=== PATIENT | female | born 1940 | race Caucasian/White ===

== ENCOUNTER 2018-04-22 06:51 | Day surgery (SDC) | payer MEDICARE, OTHER ==
[~2018-04-22 06:51] MED LIST: Lactated Ringers 1,000 ML IV SCH
[2018-04-22] MEDS ORDERED: Propofol 200 MG/20 ML SDV ONE (08:54)
[2018-04-22] MEDS ORDERED: fentaNYL 100 MCG/2 ML SDV ONE (08:54)
[2018-04-22] MEDS ORDERED: Lidocaine 4% 5 ML Amp ONE (09:24)
[2018-04-22 10:10] VITALS: BP 160/70
--- NOTE | 2018-04-22 13:16 | OR ---
SURGERY DATE: 04/22/2018 REFERRING PROVIDER: Mayuri Cota MD PRE-OPERATIVE DIAGNOSES: 1. Esophagitis. The patient just started on omeprazole 20 mg daily within the last week. 2. Chronic dysphagia over the past year, but worse since September. The patient does take Aleve 2 tablets 2 to 3 times per week. No tobacco use and rare alcohol use. POST-OPERATIVE DIAGNOSES: 1. A 3 cm sliding-type hiatal hernia with a very slight Schatzki's ring at the superior aspect at the Z-line. This does not seem to be causing much of a stricture or narrowing. No dilation needed at this time. 2. Mild diffuse gastritis. Antral biopsy x2 taken. 3. Mild esophagitis with cold biopsy x2 bites taken at the Z-line. 4. Mild bile reflux noted in the stomach body. PROCEDURE: Esophagogastroduodenoscopy with cold biopsy x2 sites (antrum and Z- line). SURGEON: Eugene Munguia M.D. ANESTHESIA: Monitored anesthesia care. DESCRIPTION OF PROCEDURE: Mrs. Harrison is a 77-year-old female, who was brought to the endoscope suite after discussion of risks and benefits (including but not limited to reaction to medication, bleeding, infection, aspiration, perforation). Informed consent was obtained for monitored anesthesia care and esophagogastroduodenoscopy along with possible biopsy and/or dilatation. Pre-procedure exam including oral cavity was unremarkable. IV, oxygen, and monitors were placed. Topical anesthesia consisting of Cetacaine spray was used in the pharynx. Patient was placed in the left lateral position and sedation was administered. A bite block was placed gently and scope lightly lubricated and passed through the bite block and over the tongue. Hypopharynx and vocal cords were visualized and unremarkable. Scope was passed through the cricopharynx and into the esophagus. The scope was then passed through the distal esophagus and the GE junction was visualized and photographed. The GE junction was remarkable for a 3 cm sliding-type hiatal hernia. At the superior aspect, there was a very slight suggestion of Schatzki's ring developing, but not causing any significant narrowing. No dilation was needed at this time. On the way out, we did take cold biopsy x2 bites from the Z-line area. Mild esophagitis was noted. The scope was advanced in the stomach. Gastric lott was suctioned. The patient did have mild bile reflux noted within the stomach body. Vocal cords were visualized and unremarkable. The scope was advanced into the stomach and gastric lott was suctioned. Pylorus was identified and intubated and then the scope was advanced to the third portion of the duodenum. The second and third portions of the duodenum were unremarkable. The duodenal bulb was visualized and unremarkable. The scope was brought back into the stomach. The pylorus and antrum were remarkable for diffuse gastritis with some scattered petechiae. No ulcerations seen. Cold biopsy x2 bites was taken from this area to check for H. pylori and sent for path. The scope was then retroflexed to visualize the angularis, fundus, body, and cardia. These were remarkable for some mild diffuse gastritis. Also scattered bleeding petechiae. Retroflexion also gave a good view of the sliding hiatal hernia. The stomach was desufflated of air and then the scope was slowly withdrawn, and the esophagus was closely visualized during withdrawal all the way into the posterior pharynx. In the upper esophagus there was an area of heterotopic type mucosa. Cold biopsy x2 bites was taken of this area and sent for path. The patient tolerated the procedure well and went to recovery in stable condition. The patient was monitored until at baseline status. Findings and discharge instructions were reviewed and the patient was discharged in good condition. COMPLICATIONS: None. TOTAL TIME: 7 minutes. ESTIMATED BLOOD LOSS: About 1 mL. RECOMMENDATIONS/FOLLOW-UP: Findings were discussed with the patient. They will have her continue on her omeprazole 20 mg daily for the time being. We can consider increasing dose in the future if needed as there is some obvious inflammation going on in the stomach and lower esophagus. I am also going to have her hold her aspirin for 3 days to limit any chance of bleeding after the biopsies were taken. I would like to kindly thank you, Dr. Cota, for this referral. DMB: 04/22/2018 10:59:57 MODL: 04/22/2018 13:04:25 /[id number]
== END 2018-04-22 10:13 | disposition home or self-care (01) ==
LOC: VM.SDS 06:51
PROVIDERS: ATTEND Family Medicine
DX: K20.9 Esophagitis, unspecified (principal); K44.9 Diaphragmatic hernia without obstruction or gangrene; K29.70 Gastritis, unspecified, without bleeding; K21.9 Gastro-esophageal reflux disease without esophagitis; I10 Essential (primary) hypertension; J43.1 Panlobular emphysema; E78.00 Pure hypercholesterolemia, unspecified; R73.9 Hyperglycemia, unspecified; E83.42 Hypomagnesemia; N81.11 Cystocele, midline; M19.90 Unspecified osteoarthritis, unspecified site; Z79.82 Long term (current) use of aspirin; Z79.899 Other long term (current) drug therapy; Z88.0 Allergy status to penicillin; Z88.8 Allergy status to other drugs, medicaments and biological substances; Z91.018 Allergy to other foods
CPT/HCPCS: 00731; 43239; 88305; J2704; J3010; J7120

== ENCOUNTER 2018-09-30 11:06 | Observation (INO) | payer MEDICARE, OTHER ==
[2018-09-30] MEDS ORDERED: Sodium Chloride 0.9% 10 ML Syringe FLUSH PRN (11:46)
[2018-09-30] MEDS ORDERED: Sodium Chloride 0.9% 1,000 ML IV ONE (11:50)
--- NOTE | 2018-09-30 12:11 | EDM.PDOC ---
ED HPI GENERAL MEDICAL PROBLEM - General Chief Complaint: Gastrointestinal Problem Stated Complaint: SHAKY COLD Time Seen by Provider: 09/30/18 11:17 Source of Information: Reports: Patient History Limitations: Reports: No Limitations - History of Present Illness INITIAL COMMENTS - FREE TEXT/NARRATIVE: PLEASE USE ER NOTE FOR ADMISSION HISTORY AND PHYSICAL Patient arrived from the clinic without any report or notice. Patient presented with being cold, nauseated, chills, sore all over. Has history of electrolyte abnormalities. Some complaints of HTN. Reports having been feeling this was for the last several days. No additional complaints. Denies headache, chest pain, SOB, abdominal pain, urinary complaints. Does have nausea , vomiting, diarrhea. Feeling weak and fatigued. Onset: Gradual Duration: Getting Worse Location: Reports: Generalized Associated Symptoms: Reports: Fever/Chills, Nausea/Vomiting Generalized Pain Score (Numeric/FACES): 5 - Related Data Allergies Allergy/AdvReac Type Severity Reaction Status Date / Time acetaminophen Allergy Nausea Verified 09/30/18 13:30 [From Lorcet ] hydrocodone Allergy Nausea Verified 09/30/18 13:30 [From Lorcet ] Penicillins Allergy Rash Verified 09/30/18 13:30 soybean Allergy Edema Verified 09/30/18 13:30 [id number] Allergy Other Uncoded 04/22/18 07:37 Home Meds: Home Meds Albuterol [Ventolin HFA] 2 puff INH Q4H PRN 12/24/14 [History] Fluticasone Propionate [Flonase] 2 spray NASBOTH DAILY PRN 12/24/14 [History] Fluticasone/Salmeterol [Advair 250-50 Diskus] 1 puff INH BID 12/24/14 [History] Gemfibrozil 1 tab PO DAILY 12/24/14 [History] Lisinopril 5 mg PO DAILY 12/24/14 [History] Aspirin [Halfprin] 81 mg PO DAILY 04/19/18 [History] Cholecalciferol (Vitamin D3) [D3 Dots] 2,000 unit PO DAILY 04/19/18 [History] Cranberry Fruit Concentrate [Azo Cranberry] 250 mg PO DAILY 04/19/18 [History] Naproxen Sodium [Aleve] 440 mg PO DAILY PRN 04/19/18 [History] Omeprazole 20 mg PO DAILY 04/19/18 [History] Sulfamethoxazole/Trimethoprim [Sulfamethoxazole-Tmp Ds Tablet] 1 tab PO DAILY PRN 04/19/18 [History] Triamterene/Hydrochlorothiazid [Triamterene-HCTZ 37.5-25 MG] 1 cap PO DAILY [History] tiZANidine HCl [Tizanidine HCl] 2 mg PO TID PRN 04/19/18 [History] Past Medical History HEENT History: Reports: Allergic Rhinitis, Hard of Hearing Other HEENT History: esophagitis Cardiovascular History: Reports: High Cholesterol, Hypertension Respiratory History: Reports: COPD Other Respiratory History: chronic obstructive respiratory disease. lung nodule. panilobular emphysema Genitourinary History: Reports: UTI, Recurrent Other Genitourinary History: midline cystocele Musculoskeletal History: Reports: Osteoarthritis Other Musculoskeletal History: abnormal leg movement. acute bilateral low back pain with bilateral sciatica. disorder of bone. right ankle pain. shoulder pain. DJD. sprain and strain of sacroiliac ligament. herpes zoster Neurological History: Reports: Vertigo Other Endocrine/Metabolic History: hyperglycemia Other Hematologic History: vitamin d deficiency. hypomagnesemia - Past Surgical History HEENT Surgical History: Reports: Adenoidectomy, Tonsillectomy GI Surgical History: Reports: Appendectomy, Cholecystectomy Other GI Surgeries/Procedures: exploratory lap Female Surgical History: Reports: Hysterectomy, Other (See Below) Other Female Surgeries/Procedures: RPR rectocele Musculoskeletal Surgical History: Reports: Carpal Tunnel, Joint Replacement Other Musculoskeletal Surgeries/Procedures:: total ankle replacement (right) Social & Family History - Family History Family Medical History: Noncontributory - Tobacco Use Smoking Status *Q: Never Smoker Second Hand Smoke Exposure: No - Caffeine Use Caffeine Use: Reports: None - Recreational Drug Use Recreational Drug Use: No ED ROS GENERAL - Review of Systems Review Of Systems: See Below Constitutional: Reports: Fever, Chills HEENT: Reports: No Symptoms Respiratory: Reports: No Symptoms Cardiovascular: Reports: No Symptoms Endocrine: Reports: No Symptoms GI/Abdominal: Reports: Diarrhea, Nausea, Vomiting. Denies: Abdominal Pain : Reports: No Symptoms Musculoskeletal: Reports: No Symptoms Skin: Reports: No Symptoms Neurological: Reports: No Symptoms Psychiatric: Reports: No Symptoms Hematologic/Lymphatic: Reports: No Symptoms Immunologic: Reports: No Symptoms ED EXAM, GENERAL - Physical Exam Exam: See Below Exam Limited By: No Limitations General Appearance: Alert, WD/WN, Mild Distress Eye Exam: Bilateral Eye: EOMI, Normal Inspection, PERRL Ears: Normal TMs Nose: Normal Inspection, Normal Mucosa, No Blood Throat/Mouth: Normal Inspection, Normal Lips, Normal Teeth, Normal Gums, Normal Oropharynx, Normal Voice, No Airway Compromise Head: Atraumatic, Normocephalic Neck: Normal Inspection, Supple, Non-Tender, Full Range of Motion Respiratory/Chest: No Respiratory Distress, Lungs Clear, Normal Breath Sounds, No Accessory Muscle Use, Chest Non-Tender Cardiovascular: Normal Peripheral Pulses, Regular Rate, Rhythm, No Edema, No Gallop, No JVD, No Murmur, No Rub Peripheral Pulses: 2+: Posterior Tibial (L), Posterior Tibial (R), Dorsalis Pedis (L), Dorsalis Pedis (R) GI/Abdominal: Normal Bowel Sounds, Soft, Non-Tender, No Mass Extremities: Normal Inspection, Normal Range of Motion, Non-Tender, Normal Capillary Refill, No Pedal Edema Neurological: Alert, Oriented, CN II-XII Intact, Normal Cognition, Normal Gait, Normal Reflexes, No Motor/Sensory Deficits Psychiatric: Normal Affect, Normal Mood Skin Exam: Warm, Dry, Intact, Normal Color, No Rash Lymphatic: No Adenopathy EKG INTERPRETATION EKG Date: 09/30/18 Rhythm: NSR [facility]: Normal P-Wave: Present QRS: Normal ST-T: Normal QT: Normal Course - Vital Signs Last Recorded V/S: Last Vital Signs Temp 36.3 C 09/30/18 11:22 Pulse 75 09/30/18 11:22 Resp 22 H 09/30/18 11:22 BP 190/79 H 09/30/18 11:22 Pulse Ox 100 09/30/18 11:22 - Orders/Labs/Meds Orders: Active Orders 24 hr Category Date Time Status EKG Documentation Completion [RC] STAT Care 09/30/18 11:46 Active CULTURE BLOOD [BC] Stat Lab 09/30/18 12:03 Results CULTURE BLOOD [BC] Stat Lab 09/30/18 12:08 Results Sodium Chloride 0.9% [Saline Flush] Med 09/30/18 11:46 Active 10 ml FLUSH ASDIRECTED PRN Blood Culture x2 Reflex Set [OM.PC] Stat Oth 09/30/18 11:46 Ordered Saline Lock Insert [OM.PC] Routine Oth 09/30/18 11:46 Ordered Medication Orders Aspirin (Halfprin) 81 mg PO DAILY CHARMAINE Fluticasone Propionate (Flonase) gm NASBOTH DAILY PRN PRN Reason: NASAL CONGESTION Gemfibrozil (Lopid) mg PO DAILY CHARMAINE Magnesium Sulfate 4 gm/ Premix 100 mls @ 25 mls/hr IV ONETIME ONE Stop: 09/30/18 17:28 Sodium Chloride (Normal Saline) 1,000 mls @ 100 mls/hr IV ASDIRECTED CHARMAINE Lisinopril (Prinivil) 5 mg PO DAILY CHARMAINE Non-Formulary Medication (Albuterol) 2 puff INH Q4H PRN PRN Reason: shortness of Non-Formulary Medication (Cholecalciferol (Vitamin D3) [D3 Dots]) 2,000 unit PO DAILY CHARMAINE Non-Formulary Medication (Cranberry Fruit Concentrate [Azo Cranberry]) 250 mg PO DAILY CHARMAINE Non-Formulary Medication (Fluticasone/Salmeterol [Advair 250-50 Diskus]) 1 puff INH BID CHARMAINE Non-Formulary Medication (Naproxen Sodium [Aleve]) 440 mg PO DAILY PRN PRN Reason: Pain Non-Formulary Medication (Tizanidine Hcl [Tizanidine Hcl]) 2 mg PO TID PRN PRN Reason: Muscle Spasm Non-Formulary Medication (Triamterene/Hydrochlorothiazid [Triamterene-Hctz 37.5- 25 Mg]) 1 cap PO DAILY [facility] Omeprazole (Omeprazole) 20 mg PO DAILY CHARMAINE Ondansetron HCl (Zofran Odt) 4 mg PO Q6H PRN PRN Reason: nausea, able to take PO Sodium Chloride (Saline Flush) 10 ml FLUSH ASDIRECTED PRN PRN Reason: Keep Vein Open Trimethoprim/Sulfamethoxazole (Septra Ds) 1 tab PO DAILY PRN PRN Reason: after intercourse Labs: Laboratory Tests 09/30/18 09/30/18 09/30/18 Range/Units 11:46 12:03 12:03 WBC 8.6 (4.0-10.0) x10^3/uL RBC 4.21 (4.00-5.50) x10^6/uL Hgb 13.2 D (12.0-16.0) g/dL Hct 37.2 (33.0-47.0) % MCV 88.4 (78.0-93.0) fL MCH 31.4 (26.0-32.0) pg MCHC 35.5 (32.0-36.0) g/dL RDW Coeff of April 11.9 (10.0-15.0) % Plt Count 515 H D (130-400) x10^3/uL Neut % (Auto) 82.7 H (50.0-80.0) % Lymph % (Auto) 7.5 L (25.0-50.0) % [place] % (Auto) 9.1 (2.0-11.0) % Eos % (Auto) 0.2 (0.0-4.0) % Baso % (Auto) 0.5 (0.2-1.2) % PT 11.1 (9.6-11.4) SEC INR 1.1 L (2.0-3.5) Sodium (136-145) mmol/L Potassium (3.5-5.1) mmol/L Chloride (98-107) mmol/L Carbon Dioxide (21-32) mmol/L Anion Gap (10-20) mmol/L BUN (7-18) mg/dL Creatinine (0.55-1.02) mg/dL Est Cr Clr Drug Dosing mL/min Estimated GFR (MDRD) Glucose (74-106) mg/dL Lactic Acid (0.4-2.0) mmol/L Calcium (8.5-10.1) mg/dL Corrected Calcium (8.5-10.1) mg/dL Magnesium (1.8-2.4) mg/dL Total Bilirubin (0.2-1.0) mg/dL AST (15-37) U/L ALT (14-59) U/L Alkaline Phosphatase (46-116) U/L Creatine Kinase (26-192) U/L Troponin I (<=0.056) ng/mL Total Protein (6.4-8.2) g/dL Albumin (3.4-5.0) g/dL Globulin Albumin/Globulin Ratio TSH, Ultra Sensitive (0.358-3.74) uIU/mL Urine Color Yellow (YELLOW) Urine Appearance Clear (CLEAR) Urine pH 7.5 (5.0-8.0) Ur Specific [place] 1.015 Urine Protein Negative (NEGATIVE) mg/dL Urine Glucose (UA) Negative (NEGATIVE) mg/dL Urine Ketones Negative (NEGATIVE) mg/dL Urine Occult Blood Negative (NEGATIVE) Urine Nitrite Negative (NEGATIVE) Urine Bilirubin Negative (NEGATIVE) Urine Urobilinogen 0.2 (0.2) EU/dL Ur Leukocyte Esterase Negative (NEGATIVE) Urine RBC 0-5 (NOT SEEN) /HPF Urine WBC 0-5 (NOT SEEN) /HPF Ur Squamous Epith Cells Not seen (NEGATIVE) /HPF Urine Bacteria Not seen (NEGATIVE) /HPF Urine Mucus Not seen (NEGATIVE) /LPF 09/30/18 09/30/18 Range/Units 12:03 12:03 WBC (4.0-10.0) x10^3/uL RBC (4.00-5.50) x10^6/uL Hgb (12.0-16.0) g/dL Hct (33.0-47.0) % MCV (78.0-93.0) fL MCH (26.0-32.0) pg MCHC (32.0-36.0) g/dL RDW Coeff of April (10.0-15.0) % Plt Count (130-400) x10^3/uL Neut % (Auto) (50.0-80.0) % Lymph % (Auto) (25.0-50.0) % [place] % (Auto) (2.0-11.0) % Eos % (Auto) (0.0-4.0) % Baso % (Auto) (0.2-1.2) % PT (9.6-11.4) SEC INR (2.0-3.5) Sodium 124 L* D (136-145) mmol/L Potassium 3.8 (3.5-5.1) mmol/L Chloride 88 L D (98-107) mmol/L Carbon Dioxide 23 (21-32) mmol/L Anion Gap 16.8 (10-20) mmol/L BUN 10 (7-18) mg/dL Creatinine 0.6 (0.55-1.02) mg/dL Est Cr Clr Drug Dosing 61.86 mL/min Estimated GFR (MDRD) > 60 Glucose 117 H (74-106) mg/dL Lactic Acid 1.7 (0.4-2.0) mmol/L Calcium 10.2 H (8.5-10.1) mg/dL Corrected Calcium 10.52 H (8.5-10.1) mg/dL Magnesium 1.6 L (1.8-2.4) mg/dL Total Bilirubin 0.6 (0.2-1.0) mg/dL AST 15 (15-37) U/L ALT 16 (14-59) U/L Alkaline Phosphatase 156 H (46-116) U/L Creatine Kinase 62 (26-192) U/L Troponin I < 0.017 (<=0.056) ng/mL Total Protein 8.1 (6.4-8.2) g/dL Albumin 3.6 (3.4-5.0) g/dL Globulin 4.5 Albumin/Globulin Ratio 0.80 TSH, Ultra Sensitive 0.418 (0.358-3.74) uIU/mL Urine Color (YELLOW) Urine Appearance (CLEAR) Urine pH (5.0-8.0) Ur Specific [place] Urine Protein (NEGATIVE) mg/dL Urine Glucose (UA) (NEGATIVE) mg/dL Urine Ketones (NEGATIVE) mg/dL Urine Occult Blood (NEGATIVE) Urine Nitrite (NEGATIVE) Urine Bilirubin (NEGATIVE) Urine Urobilinogen (0.2) EU/dL Ur Leukocyte Esterase (NEGATIVE) Urine RBC (NOT SEEN) /HPF Urine WBC (NOT SEEN) /HPF Ur Squamous Epith Cells (NEGATIVE) /HPF Urine Bacteria (NEGATIVE) /HPF Urine Mucus (NEGATIVE) /LPF Meds: Medications Generic Name Dose Route Start Last Admin Trade Name Freq PRN Reason Stop Dose Admin Aspirin 81 mg 10/01/18 08:00 Halfprin PO DAILY CHARMAINE Fluticasone Propionate gm 09/30/18 14:06 Flonase NASBOTH DAILY PRN NASAL CONGESTION Gemfibrozil mg 10/01/18 08:00 Lopid PO DAILY CHARMAINE Magnesium Sulfate 4 gm/ Premix 100 mls @ 25 mls/hr 09/30/18 13:29 IV 09/30/18 17:28 ONETIME ONE Sodium Chloride 1,000 mls @ 100 mls/hr 09/30/18 13:30 Normal Saline IV ASDIRECTED CHARMAINE Lisinopril 5 mg 09/30/18 14:15 Prinivil PO DAILY CHARMAINE Non-Formulary Medication 2 puff 09/30/18 14:06 Albuterol INH Q4H PRN shortness of Non-Formulary Medication 2,000 unit 10/01/18 08:00 Cholecalciferol (Vitamin D3) [D3 Dots] PO DAILY CHARMAINE Non-Formulary Medication 250 mg 10/01/18 08:00 Cranberry Fruit Concentrate [Azo Cranberry] PO DAILY CHARMAINE Non-Formulary Medication 1 puff 09/30/18 20:00 Fluticasone/Salmeterol [Advair 250-50 Diskus] INH BID CHARMAINE Non-Formulary Medication 440 mg 09/30/18 14:06 Naproxen Sodium [Aleve] PO DAILY PRN Pain Non-Formulary Medication 2 mg 09/30/18 14:06 Tizanidine Hcl [Tizanidine Hcl] PO TID PRN Muscle Spasm Non-Formulary Medication 1 cap 10/01/18 08:00 Triamterene/Hydrochlorothiazid [Triamterene-Hctz 37.5-25 Mg] PO DAILY CHARMAINE Omeprazole 20 mg 10/01/18 08:00 Omeprazole PO DAILY CHARMAINE Ondansetron HCl 4 mg 09/30/18 14:03 Zofran Odt PO Q6H PRN nausea, able to take PO Sodium Chloride 10 ml 09/30/18 11:46 Saline Flush FLUSH ASDIRECTED PRN Keep Vein Open Trimethoprim/Sulfamethoxazole 1 tab 09/30/18 14:06 Septra Ds PO DAILY PRN after intercourse Discontinued Medications Generic Name Dose Route Start Last Admin Trade Name Freq PRN Reason Stop Dose Admin Sodium Chloride 1,000 mls @ 999 mls/hr 09/30/18 11:50 09/30/18 12:09 Normal Saline IV 09/30/18 12:50 999 mls/hr ONETIME ONE Administration Ondansetron HCl 4 mg 09/30/18 12:19 09/30/18 12:24 Zofran IVPUSH 09/30/18 12:20 4 mg ONETIME ONE Administration Departure - Departure Time of Disposition: 13:48 Disposition: Refer to Observation Condition: Good Clinical Impression: Hyponatremia, Hypomagnesemia - Discharge Information *PRESCRIPTION DRUG MONITORING PROGRAM REVIEWED*: Not Applicable *COPY OF PRESCRIPTION DRUG MONITORING REPORT IN PATIENT ADELAIDA: Not Applicable - Problem List & Annotations (1) Hypomagnesemia SNOMED Code(s): 109342773 Code(s): E83.42 - HYPOMAGNESEMIA Status: Acute Priority: Medium Current Visit: Yes (2) Hyponatremia SNOMED Code(s): 93622137 Code(s): E87.1 - HYPO-OSMOLALITY AND HYPONATREMIA Status: Acute Priority : High Current Visit: Yes (3) Gastroenteritis SNOMED Code(s): 05545755 Code(s): K52.9 - NONINFECTIVE GASTROENTERITIS AND COLITIS, UNSPECIFIED Status: Acute Priority: High Current Visit: No - Problem List Review Problem List Initiated/Reviewed/Updated: Yes - My Orders Last 24 Hours: My Active Orders 09/30/18 11:46 EKG Documentation Completion [RC] STAT Sodium Chloride 0.9% [Saline Flush] 10 ml FLUSH ASDIRECTED PRN Blood Culture x2 Reflex Set [OM.PC] Stat Saline Lock Insert [OM.PC] Routine 09/30/18 12:03 CULTURE BLOOD [BC] Stat 09/30/18 12:08 CULTURE BLOOD [BC] Stat - Assessment/Plan Last 24 Hours: My Active Orders 09/30/18 11:46 EKG Documentation Completion [RC] STAT Sodium Chloride 0.9% [Saline Flush] 10 ml FLUSH ASDIRECTED PRN Blood Culture x2 Reflex Set [OM.PC] Stat Saline Lock Insert [OM.PC] Routine 09/30/18 12:03 CULTURE BLOOD [BC] Stat 09/30/18 12:08 CULTURE BLOOD [BC] Stat Assessment:: Hypokalemia hypomagnesemia gastroenteritis Plan: Plan 1. hypomagnesemia - magnesium repletion 2. hyponatremia - 0.9% saline infusion 3. gastroenteritis - zofran as needed for nausea, iv hydration Labs in am to determine NA and MG levels. Anticipate DC sometime tomorrow.
[2018-09-30] MEDS ORDERED: Ondansetron 4 MG/2 ML SDV IVPUSH ONE (12:19)
[2018-09-30 12:50] LABS: CHLORIDE,CL 88 mmol/L (98-107)
[2018-09-30 12:54] LABS: ANION GAP 16.8 mmol/L (10-20); SODIUM,NA 124 mmol/L (136-145)
[2018-09-30] MEDS ORDERED: Magnesium Sulfate/Water 4 GM in Premix Bag 1 BAG IV ONE (13:29)
[2018-09-30] MEDS ORDERED: Ondansetron 4 MG Tab.DIS PO PRN (14:03)
[2018-09-30] MEDS ORDERED: Fluticasone Propionate Nasal Spray 16 GM Bottle NASBOTH PRN (14:06)
[2018-09-30] MEDS ORDERED: tiZANidine 4 MG Tab PO PRN (14:06)
[2018-09-30] MEDS ORDERED: Sulfamethoxazole/Trimethoprim 800-160 MG Tab PO PRN (14:06)
[2018-09-30] MEDS: Sodium Chloride 0.9% 1,000 ML IV SCH (14:19)
[2018-09-30] MEDS: LISINOPRIL 5 MG PO SCH (15:33)
[2018-09-30] MEDS: SALMETEROL INH SCH (21:02)
[2018-09-30] MEDS: FLUTICASONE INH SCH (21:02)
[2018-10-01] MEDS: Sodium Chloride 0.9% 1,000 ML IV SCH (01:09)
[2018-10-01 06:49] VITALS: BP 141/78
[2018-10-01] MEDS ORDERED: Omeprazole 20 MG Cap.CR PO SCH (07:00)
[2018-10-01 07:12] LABS: ANION GAP 13.1 mmol/L (10-20); CHLORIDE,CL 100 mmol/L (98-107); SODIUM,NA 135 mmol/L (136-145)
[2018-10-01] MEDS ORDERED: TRIAMTERENE PO SCH (08:00)
[2018-10-01] MEDS ORDERED: Aspirin 81 MG Tab.EC PO SCH (08:00)
[2018-10-01] MEDS ORDERED: Cholecalciferol (Vitamin D3) 1,000 Unit Tab PO SCH (08:00)
[2018-10-01] MEDS ORDERED: CRANBERRY FRUIT 500 MG PO SCH (08:00)
[2018-10-01] MEDS ORDERED: GEMFIBROZIL 600 MG PO SCH (08:00)
[2018-10-01] MEDS ORDERED: HYDROCHLOROTHIAZID PO SCH (08:00)
[2018-10-01] MEDS: LISINOPRIL 5 MG PO SCH (08:01)
--- NOTE | 2018-10-01 08:53 | PCM.DCSUM1 ---
Discharge Summary - Hospital Course HPI Initial Comments: Patient presented with being cold, nauseated, chills, sore all over. Has history of electrolyte abnormalities. Some complaints of HTN. Reports having been feeling this was for the last several days. No additional complaints. Denies headache, chest pain, SOB, abdominal pain, urinary complaints. Does have nausea, vomiting, diarrhea. Feeling weak and fatigued. Influenza negative. Patient found to be hyponatremic and low mag. Diagnosis: Stroke: No Modified Cabell Scale: No Symptoms at All Modified Cabell Scale Score: 0 - Discharge Data Discharge Date: 10/01/18 Discharge Disposition: Home, Self-Care 01 Condition: Good - Discharge Diagnosis/Problem(s) (1) Hypomagnesemia SNOMED Code(s): 428056030 ICD Code: E83.42 - HYPOMAGNESEMIA Status: Resolved Priority: Medium Current Visit: Yes (2) Hyponatremia SNOMED Code(s): 93507662 ICD Code: E87.1 - HYPO-OSMOLALITY AND HYPONATREMIA Status: Resolved Priority: High Current Visit: Yes (3) Dehydration SNOMED Code(s): 75212276 ICD Code: E86.0 - DEHYDRATION Status: Resolved Priority: High Current Visit: Yes (4) Gastroenteritis SNOMED Code(s): 23456219 ICD Code: K52.9 - NONINFECTIVE GASTROENTERITIS AND COLITIS, UNSPECIFIED Status: Resolved Priority: High Current Visit: No - Patient Summary/Data Operative Procedure(s) Performed: None Consults: None Labs Pending at D/C: None Recommended Follow-up Testing/Procedures: Labs prior to clinic appointment next week Planned Operative Procedure(s) after DC: None Hospital Course: Patient remained hemodynamically stable and afebrile. Electrolytes were replaced. Patient continues to have a dry cough. No issues with BM's or urination. Patient ambulating independently. Tolerated diet ok. - Patient Instructions Diet: Heart Healthy Diet Activity: As Tolerated, Rest and Relax Today Driving: Do Not Drive Showering/Bathing: May Shower Notify Provider of: Fever, Nausea and/or Vomiting - Discharge Plan *PRESCRIPTION DRUG MONITORING PROGRAM REVIEWED*: Not Applicable *COPY OF PRESCRIPTION DRUG MONITORING REPORT IN PATIENT ADELAIDA: Not Applicable Prescriptions/Med Rec: Benzonatate [Tessalon Perle] 100 mg PO TID PRN #30 capsule PRN Reason: Cough Home Medications: Home Meds Albuterol [Ventolin HFA] 2 puff INH Q4H PRN 12/24/14 [History] Fluticasone Propionate [Flonase] 2 spray NASBOTH DAILY PRN 12/24/14 [History] Fluticasone/Salmeterol [Advair 250-50 Diskus] 1 puff INH BID 12/24/14 [History] Gemfibrozil 1 tab PO DAILY 12/24/14 [History] Lisinopril 5 mg PO DAILY 12/24/14 [History] Aspirin [Halfprin] 81 mg PO DAILY 04/19/18 [History] Cholecalciferol (Vitamin D3) [D3 Dots] 2,000 unit PO DAILY 04/19/18 [History] Cranberry Fruit Concentrate [Azo Cranberry] 250 mg PO DAILY 04/19/18 [History] Naproxen Sodium [Aleve] 440 mg PO DAILY PRN 04/19/18 [History] Omeprazole 20 mg PO DAILY 04/19/18 [History] Sulfamethoxazole/Trimethoprim [Sulfamethoxazole-Tmp Ds Tablet] 1 tab PO DAILY PRN 04/19/18 [History] Triamterene/Hydrochlorothiazid [Triamterene-HCTZ 37.5-25 MG] 1 cap PO DAILY [History] tiZANidine HCl [Tizanidine HCl] 2 mg PO TID PRN 04/19/18 [History] Benzonatate [Tessalon Perle] 100 mg PO TID PRN #30 capsule 10/01/18 [Rx] Oxygen Therapy Mode: Room Air Referrals: Mayuri Cota MD [Primary Care Provider] - - Discharge Summary/Plan Comment DC Time >30 min.: No Discharge Summary/Plan Comment: Patient will be discharged home today. No changes with any home medications. Stop Doxycycline as patient does not want to take it anymore. Start on Tessalon Pearles for cough. Follow up with PCP next week in clinic. - General Info Date of Service: 10/01/18 Admission Dx/Problem (Free Text: Hyponatremia Hypomagnesemia Dehydration Subjective Update: Patient complains of a dry non-productive cough, otherwise, no concerns. Patient states she is feeling good this morning. No chest pain or SOB. No GI problems. No issues with BM's or urination. Tolerating diet ok. Functional Status: Reports: Pain Controlled, Tolerating Diet, Ambulating, Urinating Numeric/FACES Score: 0 - Review of Systems General: Denies: Fever, Chills Pulmonary: Reports: Cough. Denies: Shortness of Breath, Sputum Cardiovascular: Denies: Chest Pain, Palpitations Gastrointestinal: Denies: Abdominal Pain, Nausea, Vomiting Skin: Reports: No Symptoms Neurological: Reports: No Symptoms - Patient Data Vitals - Most Recent: Last Vital Signs Temp 36.7 C 10/01/18 06:00 Pulse 70 10/01/18 06:00 Resp 20 10/01/18 06:00 BP 141/78 H 10/01/18 08:01 Pulse Ox 98 10/01/18 06:00 Weight - Most Recent: 61.235 kg I&O - Last 24 hours: Intake & Output 09/30/18 10/01/18 10/01/18 22:59 06:59 14:59 Intake Total 610 2769 Output Total 1100 2000 Balance -490 769 Lab Results - Last 24 hrs: Laboratory Results - last 24 hr 09/30/18 09/30/18 09/30/18 Range/Units 11:46 12:03 12:03 WBC 8.6 (4.0-10.0) x10^3/uL RBC 4.21 (4.00-5.50) x10^6/uL Hgb 13.2 D (12.0-16.0) g/dL Hct 37.2 (33.0-47.0) % MCV 88.4 (78.0-93.0) fL MCH 31.4 (26.0-32.0) pg MCHC 35.5 (32.0-36.0) g/dL RDW Coeff of April 11.9 (10.0-15.0) % Plt Count 515 H D (130-400) x10^3/uL Neut % (Auto) 82.7 H (50.0-80.0) % Lymph % (Auto) 7.5 L (25.0-50.0) % [place] % (Auto) 9.1 (2.0-11.0) % Eos % (Auto) 0.2 (0.0-4.0) % Baso % (Auto) 0.5 (0.2-1.2) % PT 11.1 (9.6-11.4) SEC INR 1.1 L (2.0-3.5) Sodium (136-145) mmol/L Potassium (3.5-5.1) mmol/L Chloride (98-107) mmol/L Carbon Dioxide (21-32) mmol/L Anion Gap (10-20) mmol/L BUN (7-18) mg/dL Creatinine (0.55-1.02) mg/dL Est Cr Clr Drug Dosing mL/min Estimated GFR (MDRD) Glucose (74-106) mg/dL Lactic Acid (0.4-2.0) mmol/L Calcium (8.5-10.1) mg/dL Corrected Calcium (8.5-10.1) mg/dL Magnesium (1.8-2.4) mg/dL Total Bilirubin (0.2-1.0) mg/dL AST (15-37) U/L ALT (14-59) U/L Alkaline Phosphatase (46-116) U/L Creatine Kinase (26-192) U/L Troponin I (<=0.056) ng/mL Total Protein (6.4-8.2) g/dL Albumin (3.4-5.0) g/dL Globulin Albumin/Globulin Ratio TSH, Ultra Sensitive (0.358-3.74) uIU/mL Urine Color Yellow (YELLOW) Urine Appearance Clear (CLEAR) Urine pH 7.5 (5.0-8.0) Ur Specific [place] 1.015 Urine Protein Negative (NEGATIVE) mg/dL Urine Glucose (UA) Negative (NEGATIVE) mg/dL Urine Ketones Negative (NEGATIVE) mg/dL Urine Occult Blood Negative (NEGATIVE) Urine Nitrite Negative (NEGATIVE) Urine Bilirubin Negative (NEGATIVE) Urine Urobilinogen 0.2 (0.2) EU/dL Ur Leukocyte Esterase Negative (NEGATIVE) Urine RBC 0-5 (NOT SEEN) /HPF Urine WBC 0-5 (NOT SEEN) /HPF Ur Squamous Epith Cells Not seen (NEGATIVE) /HPF Urine Bacteria Not seen (NEGATIVE) /HPF Urine Mucus Not seen (NEGATIVE) /LPF 09/30/18 09/30/18 10/01/18 Range/Units 12:03 12:03 06:35 WBC (4.0-10.0) x10^3/uL RBC (4.00-5.50) x10^6/uL Hgb (12.0-16.0) g/dL Hct (33.0-47.0) % MCV (78.0-93.0) fL MCH (26.0-32.0) pg MCHC (32.0-36.0) g/dL RDW Coeff of April (10.0-15.0) % Plt Count (130-400) x10^3/uL Neut % (Auto) (50.0-80.0) % Lymph % (Auto) (25.0-50.0) % [place] % (Auto) (2.0-11.0) % Eos % (Auto) (0.0-4.0) % Baso % (Auto) (0.2-1.2) % PT (9.6-11.4) SEC INR (2.0-3.5) Sodium 124 L* D 135 L D (136-145) mmol/L Potassium 3.8 4.1 (3.5-5.1) mmol/L Chloride 88 L D 100 D (98-107) mmol/L Carbon Dioxide 23 26 (21-32) mmol/L Anion Gap 16.8 13.1 (10-20) mmol/L BUN 10 7 (7-18) mg/dL Creatinine 0.6 0.5 L (0.55-1.02) mg/dL Est Cr Clr Drug Dosing 61.86 74.23 mL/min Estimated GFR (MDRD) > 60 > 60 Glucose 117 H 85 (74-106) mg/dL Lactic Acid 1.7 (0.4-2.0) mmol/L Calcium 10.2 H 9.2 (8.5-10.1) mg/dL Corrected Calcium 10.52 H (8.5-10.1) mg/dL Magnesium 1.6 L 2.1 (1.8-2.4) mg/dL Total Bilirubin 0.6 (0.2-1.0) mg/dL AST 15 (15-37) U/L ALT 16 (14-59) U/L Alkaline Phosphatase 156 H (46-116) U/L Creatine Kinase 62 (26-192) U/L Troponin I < 0.017 (<=0.056) ng/mL Total Protein 8.1 (6.4-8.2) g/dL Albumin 3.6 (3.4-5.0) g/dL Globulin 4.5 Albumin/Globulin Ratio 0.80 TSH, Ultra Sensitive 0.418 (0.358-3.74) uIU/mL Urine Color (YELLOW) Urine Appearance (CLEAR) Urine pH (5.0-8.0) Ur Specific [place] Urine Protein (NEGATIVE) mg/dL Urine Glucose (UA) (NEGATIVE) mg/dL Urine Ketones (NEGATIVE) mg/dL Urine Occult Blood (NEGATIVE) Urine Nitrite (NEGATIVE) Urine Bilirubin (NEGATIVE) Urine Urobilinogen (0.2) EU/dL Ur Leukocyte Esterase (NEGATIVE) Urine RBC (NOT SEEN) /HPF Urine WBC (NOT SEEN) /HPF Ur Squamous Epith Cells (NEGATIVE) /HPF Urine Bacteria (NEGATIVE) /HPF Urine Mucus (NEGATIVE) /LPF JEFERSON Results - Last 24 hrs: Microbiology 09/30/18 12:00 Influenza Type A Antigen Screen - Final Nasal Aspirate, Unspecified NEGATIVE INFLUENZA A VIRUS AG Influenza Type B Antigen Screen - Final NEGATIVE INFLUENZA B VIRUS AG 09/30/18 12:08 Anaerobic Blood Culture - Final Blood - Venous - Lab Draw 09/30/18 12:03 Anaerobic Blood Culture - Final Blood - Venous Med Orders - Current: Current Medications Aspirin (Halfprin) 81 mg PO DAILY [facility] Last Admin: 10/01/18 07:59 Dose: 81 mg Cholecalciferol (Vitamin D3) 2,000 units PO DAILY [facility] Last Admin: 10/01/18 08:04 Dose: 2,000 units Fluticasone Propionate (Flonase) 0 gm NASBOTH DAILY PRN PRN Reason: NASAL CONGESTION Last Admin: 09/30/18 17:54 Dose: 2 spray Gemfibrozil (Lopid) 600 mg PO DAILY [facility] Last Admin: 10/01/18 08:00 Dose: 600 mg Sodium Chloride (Normal Saline) 1,000 mls @ 100 mls/hr IV ASDIRECTED [facility] Last Admin: 10/01/18 01:09 Dose: 100 mls/hr Lisinopril (Prinivil) 5 mg PO DAILY [facility] Last Admin: 10/01/18 08:01 Dose: 5 mg Naproxen (Naproxen Sodium) 440 mg PO DAILY PRN PRN Reason: Pain Albuterol Inhaler ( (Own Supply)) 0 puff INH Q4H PRN PRN Reason: shortness of breath Cranberry Fruit (Concentrate 500mg) 0 mg PO DAILY [facility] Last Admin: 10/01/18 08:00 Dose: 500 mg Fluticasone/Salmeterol [Advair 250-50 Diskus] 1 puff INH BID [facility] Last Admin: 09/30/18 21:02 Dose: 1 puff Triamterene/Hydrochlorothiazid 37.5-25mg (Own Supply) 1 cap PO DAILY [facility] Last Admin: 10/01/18 08:01 Dose: 1 cap Omeprazole (Omeprazole) 20 mg PO DAILY@0700 [facility] Last Admin: 10/01/18 06:17 Dose: 20 mg Ondansetron HCl (Zofran Odt) 4 mg PO Q6H PRN PRN Reason: nausea, able to take PO Sodium Chloride (Saline Flush) 10 ml FLUSH ASDIRECTED PRN PRN Reason: Keep Vein Open Tizanidine HCl (Zanaflex) 2 mg PO TID PRN PRN Reason: Muscle Spasm Trimethoprim/Sulfamethoxazole (Septra Ds) 1 tab PO DAILY PRN PRN Reason: after intercourse Discontinued Medications Sodium Chloride (Normal Saline) 1,000 mls @ 999 mls/hr IV ONETIME ONE Stop: 09/30/18 12:50 Last Admin: 09/30/18 12:09 Dose: 999 mls/hr Magnesium Sulfate 4 gm/ Premix 100 mls @ 25 mls/hr IV ONETIME ONE Stop: 09/30/18 17:28 Last Admin: 09/30/18 14:18 Dose: 25 mls/hr Ondansetron HCl (Zofran) 4 mg IVPUSH ONETIME ONE Stop: 09/30/18 12:20 Last Admin: 09/30/18 12:24 Dose: 4 mg - Exam Quality Assessment: Denies: DVT Prophylaxis, Skin Breakdown General: Reports: Alert, Oriented, Cooperative, No Acute Distress Lungs: Reports: Clear to Auscultation, Normal Respiratory Effort Cardiovascular: Reports: Regular Rate, Regular Rhythm GI/Abdominal Exam: Normal Bowel Sounds, Soft, Non-Tender Skin: Reports: Warm, Dry, Intact Neurological: Reports: No New Focal Deficit *Q Meaningful Use (DIS) - VTE *Q VTE Criteria *Q: No risk for falls or VTE at time of this discharge
[2018-10-01] MEDS: FLUTICASONE INH SCH (09:13)
[2018-10-01] MEDS: SALMETEROL INH SCH (09:13)
== END 2018-10-01 10:50 | disposition home or self-care (01) ==
LOC: VM.ED 11:06 → VM.MS 13:28
PROVIDERS: ADMIT Nurse Practitioner Family; ATTEND Nurse Practitioner Family
DX: E87.1 Hypo-osmolality and hyponatremia (principal); E83.42 Hypomagnesemia; E86.0 Dehydration; K52.9 Noninfective gastroenteritis and colitis, unspecified; I10 Essential (primary) hypertension; J44.9 Chronic obstructive pulmonary disease, unspecified; E78.00 Pure hypercholesterolemia, unspecified; Z79.82 Long term (current) use of aspirin; Z79.899 Other long term (current) drug therapy
CPT/HCPCS: 36415; 80048; 80053; 81001; 82550; 83605; 83735; 84443; 84484; 85025; 85610; 87040; 87804; 93005; 96361; 96374; 96375; 99285; A9270; G0378; J2405; J3475; J7030

== ENCOUNTER 2021-03-03 06:50 | Observation (INO) | payer MEDICARE, OTHER ==
[2021-03-03] MEDS ORDERED: Ondansetron 4 MG/2 ML SDV IVPUSH ONE (07:11)
[2021-03-03] MEDS ORDERED: Sodium Chloride 0.9% 1,000 ML IV ONE (07:11)
--- NOTE | 2021-03-03 07:36 | EDM.PDOC ---
ED HPI GENERAL MEDICAL PROBLEM - General Chief Complaint: Gastrointestinal Problem Stated Complaint: N/V, coughing, bronchitis Time Seen by Provider: 03/03/21 07:15 Source of Information: Reports: Patient History Limitations: Reports: No Limitations - History of Present Illness INITIAL COMMENTS - FREE TEXT/NARRATIVE: Patient States that she starting having coughing earlier this week about 4 days ago. Was seen, diagnosed with bronchitis and started on a zpak. She thinks maybe the cough is slightly improved. Has been feeling hot and cold. now in the last 1-2 days has developed vomiting and abdominal discomfort from the vomiting. Stools have been a bit looser, but no black or blood. States she is unable to keep anything down and is feeling weak. No covid concerns Onset Date: 02/26/21 Duration: Getting Worse Location: Reports: Chest, Abdomen Improves with: Reports: None Worsens with: Reports: Eating Associated Symptoms: Reports: Cough, Fever/Chills, Loss of Appetite, Malaise, Nausea/Vomiting Upper abdomen, ribs Pain Score (Numeric/FACES): 4 - Related Data Allergies Allergy/AdvReac Type Severity Reaction Status Date / Time acetaminophen Allergy Nausea Verified 03/03/21 07:22 [From Lorcet 10/650] hydrocodone Allergy Nausea Verified 03/03/21 07:22 [From Lorcet 10/] Penicillins Allergy Rash Verified 03/03/21 07:22 soybean Allergy Edema Verified 03/03/21 07:22 [id number] Allergy Other Uncoded 03/03/21 07:22 Home Meds: Home Meds Albuterol [Ventolin HFA] 2 puff INH Q4H PRN 12/24/14 [History] Fluticasone Propion/Salmeterol [Advair 250-50 Diskus] 1 puff INH BID 12/24/14 [History] Fluticasone Propionate [Flonase] 2 spray NASBOTH DAILY PRN 12/24/14 [History] Gemfibrozil 1 tab PO DAILY 12/24/14 [History] Aspirin [Halfprin] 81 mg PO DAILY 04/19/18 [History] Cholecalciferol (Vitamin D3) [D3 Dots] 2,000 unit PO DAILY 04/19/18 [History] Cranberry Fruit Concentrate [Azo Cranberry] 250 mg PO DAILY 04/19/18 [History] Naproxen Sodium [Aleve] 440 mg PO DAILY PRN 04/19/18 [History] Omeprazole 20 mg PO DAILY 04/19/18 [History] Sulfamethoxazole/Trimethoprim [Sulfamethoxazole-Tmp Ds Tablet] 1 tab PO DAILY PRN 04/19/18 [History] Triamterene/Hydrochlorothiazid [Triamterene-HCTZ 37.5-25 MG] 1 cap PO DAILY 04/19/18 [History] Azithromycin 250 mg PO DAILY 03/03/21 [History] Losartan [Cozaar] 50 mg PO DAILY 03/03/21 [History] carvediloL [Carvedilol] 25 mg PO BID 03/03/21 [History] Past Medical History HEENT History: Reports: Allergic Rhinitis, Hard of Hearing Other HEENT History: esophagitis Cardiovascular History: Reports: High Cholesterol, Hypertension Respiratory History: Reports: COPD Other Respiratory History: chronic obstructive respiratory disease. lung nodule. panilobular emphysema Genitourinary History: Reports: UTI, Recurrent Other Genitourinary History: midline cystocele Musculoskeletal History: Reports: Osteoarthritis Other Musculoskeletal History: abnormal leg movement. acute bilateral low back pain with bilateral sciatica. disorder of bone. right ankle pain. shoulder pain. DJD. sprain and strain of sacroiliac ligament. herpes zoster Neurological History: Reports: Vertigo Other Endocrine/Metabolic History: hyperglycemia Other Hematologic History: vitamin d deficiency. hypomagnesemia - Past Surgical History HEENT Surgical History: Reports: Adenoidectomy, Tonsillectomy GI Surgical History: Reports: Appendectomy, Cholecystectomy Other GI Surgeries/Procedures: exploratory lap Female Surgical History: Reports: Hysterectomy, Other (See Below) Other Female Surgeries/Procedures: RPR rectocele Musculoskeletal Surgical History: Reports: Carpal Tunnel, Joint Replacement Other Musculoskeletal Surgeries/Procedures:: total ankle replacement (right) Social & Family History - Family History Family Medical History: No Pertinent Family History - Tobacco Use Tobacco Use Comment: 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 - Caffeine Use Caffeine Use: Reports: None ED ROS GENERAL - Review of Systems Review Of Systems: See Below Constitutional: Reports: Fever, Chills, Malaise, Weakness, Fatigue, Decreased Appetite. Denies: Night Sweats, Diaphoresis HEENT: Reports: No Symptoms. Denies: Ear Pain, Rhinitis, Throat Swelling Respiratory: Reports: Shortness of Breath, Cough. Denies: Wheezing, Pleuritic Chest Pain, Sputum, Hemoptysis Cardiovascular: Reports: Lightheadedness. Denies: Chest Pain, Dyspnea on Exertion, Edema Endocrine: Reports: No Symptoms GI/Abdominal: Reports: Abdominal Pain, Anorexia, Decreased Appetite, Nausea, Vomiting : Reports: No Symptoms. Denies: Frequency, Hematuria, Urgency Musculoskeletal: Reports: No Symptoms Skin: Reports: No Symptoms Neurological: Reports: No Symptoms. Denies: Confusion, Headache, Paresthesia Psychiatric: Reports: No Symptoms Hematologic/Lymphatic: Reports: No Symptoms ED EXAM, GI/ABD - Physical Exam Exam: See Below Exam Limited By: No Limitations General Appearance: Alert, Mild Distress, Active Emesis Eyes: Bilateral: Normal Appearance, EOMI (Perrla) Ears: Normal External Exam Nose: Normal Inspection, Normal Mucosa, No Blood Throat/Mouth: Normal Inspection, Normal Teeth, Normal Oropharynx, Normal Voice Head: Atraumatic, Normocephalic Neck: Normal Inspection Respiratory/Chest: Lungs Clear, Normal Breath Sounds, Decreased Breath Sounds (bases) Cardiovascular: Normal Peripheral Pulses, Regular Rate, Rhythm, No Edema, No Murmur GI/Abdominal Exam: Normal Bowel Sounds, Tender (mild upper abdomen). No: Guarding, Rigid, Rebound Rectal (Female) Exam: Deferred Back Exam: Normal Inspection, Full Range of Motion. No: CVA Tenderness (L), CVA Tenderness (R) Extremities: Normal Inspection, Normal Range of Motion, Non-Tender, No Pedal Edema Neurological: Alert, Oriented, Normal Cognition, No Motor/Sensory Deficits Psychiatric: Normal Affect Skin Exam: Warm #1 Interpretation EKG Date: 03/03/21 Time: 07:30 Rhythm: NSR Elmer: Normal P-Wave: Present QRS: Normal ST-T: Normal QT: Normal Course - Vital Signs Last Recorded V/S: Last Vital Signs Temp 36.1 C 03/03/21 06:50 Pulse 63 03/03/21 07:31 Resp 14 03/03/21 07:31 BP 209/88 H 03/03/21 07:31 Pulse Ox 96 03/03/21 07:31 - Orders/Labs/Meds Orders: Active Orders 24 hr Category Date Time Status EKG 12 Lead [EKG Documentation Completion] [RC] STAT Care 03/03/21 07:12 Active OSMOLALITY - SERUM [REF] Stat Lab 03/03/21 10:00 Ordered OSMOLALITY - URINE Stat Lab 03/03/21 08:05 Received SODIUM, URINE RAND/24HR Stat Lab 03/03/21 08:05 Received Magnesium Sulfate/Water [Magnesium Sulfate in Water 4 Med 03/03/21 07:57 Active GM/100 ML] 4 gm Premix Bag 1 bag IV ONETIME Sodium Chloride 0.9% [Saline Flush] Med 03/03/21 07:09 Active 10 ml FLUSH ASDIRECTED PRN Sodium Chloride 3% 500 ml Med 03/03/21 08:00 Active IV ASDIRECTED Peripheral IV Insertion Adult [OM.PC] Stat Oth 03/03/21 07:09 Ordered Medication Orders Albuterol (Albuterol 0.083% 2.5 Mg/3 Ml Neb Soln) 2.5 mg NEB Q2H PRN PRN Reason: Dyspnea Docusate Sodium (Docusate Sodium 100 Mg Cap) 100 mg PO BID PRN PRN Reason: Constipation Sodium Chloride (Sodium Chloride 3%) 500 mls @ 15 mls/hr IV ASDIRECTED CHARMAINE Last Admin: 03/03/21 09:18 Dose: 15 mls/hr Documented by: LUKE Magnesium Sulfate 4 gm/ Premix 100 mls @ 25 mls/hr IV ONETIME ONE Stop: 03/03/21 11:56 Last Admin: 03/03/21 08:53 Dose: 25 mls/hr Documented by: LUKE Ondansetron HCl (Ondansetron 4 Mg Tab.Dis) 4 mg PO Q4H PRN PRN Reason: nausea, able to take PO Sodium Chloride (Sodium Chloride 0.9% 10 Ml Syringe) 10 ml FLUSH ASDIRECTED PRN PRN Reason: Keep Vein Open Labs: Laboratory Tests 03/03/21 03/03/21 03/03/21 Range/Units 07:12 07:12 07:12 WBC 5.4 (4.0-10.0) x10^3/uL RBC 3.85 L (4.00-5.50) x10^6/uL Hgb 12.4 (12.0-16.0) g/dL Hct 33.0 (33.0-47.0) % MCV 85.7 (78.0-93.0) fL MCH 32.2 H (26.0-32.0) pg MCHC 37.6 H (32.0-36.0) g/dL RDW Coeff of April 11.6 (10.0-15.0) % Plt Count 303 D (130-400) x10^3/uL Neut % (Auto) 65.6 (50.0-80.0) % Lymph % (Auto) 16.6 L (25.0-50.0) % [place] % (Auto) 13.7 H (2.0-11.0) % Eos % (Auto) 3.5 (0.0-4.0) % Baso % (Auto) 0.6 (0.2-1.2) % Sodium 119 L* (136-145) mmol/L Potassium 3.4 L (3.5-5.1) mmol/L Chloride 85 L (98-107) mmol/L Carbon Dioxide 25 (21-32) mmol/L Anion Gap 12.4 (5-15) mmol/L BUN 10 (7-18) mg/dL Creatinine 0.6 (0.55-1.02) mg/dL Est Cr Clr Drug Dosing 59.80 mL/min Estimated GFR (MDRD) > 60 Glucose 132 H (70-99) mg/dL Lactic Acid 1.2 (0.4-2.0) mmol/L Calcium 9.2 (8.5-10.1) mg/dL Corrected Calcium 9.4 (8.5-10.1) mg/dL Magnesium 1.4 L (1.8-2.4) mg/dL Total Bilirubin 0.8 (0.2-1.0) mg/dL AST 19 (15-37) U/L ALT 16 (14-59) U/L Alkaline Phosphatase 108 (46-116) U/L Troponin I High Sens (<=51) ng/L C-Reactive Protein (<=0.9) mg/dL Total Protein 7.5 (6.4-8.2) g/dL Albumin 3.7 (3.4-5.0) g/dL Globulin 3.8 Albumin/Globulin Ratio 0.97 Urine Color (YELLOW) Urine Appearance (CLEAR) Urine pH (5.0-8.0) Ur Specific [place] Urine Protein (NEGATIVE) mg/dL Urine Glucose (UA) (NEGATIVE) mg/dL Urine Ketones (NEGATIVE) mg/dL Urine Occult Blood (NEGATIVE) Urine Nitrite (NEGATIVE) Urine Bilirubin (NEGATIVE) Urine Urobilinogen (0.2) EU/dL Ur Leukocyte Esterase (NEGATIVE) Urine RBC (NOT SEEN) /HPF Urine WBC (NOT SEEN) /HPF Ur Squamous Epith Cells (NOT SEEN) /HPF Amorphous Sediment Urine Bacteria (NOT SEEN) /HPF Urine Mucus (NOT SEEN) /LPF 03/03/21 03/03/21 Range/Units 07:12 08:05 WBC (4.0-10.0) x10^3/uL RBC (4.00-5.50) x10^6/uL Hgb (12.0-16.0) g/dL Hct (33.0-47.0) % MCV (78.0-93.0) fL MCH (26.0-32.0) pg MCHC (32.0-36.0) g/dL RDW Coeff of April (10.0-15.0) % Plt Count (130-400) x10^3/uL Neut % (Auto) (50.0-80.0) % Lymph % (Auto) (25.0-50.0) % [place] % (Auto) (2.0-11.0) % Eos % (Auto) (0.0-4.0) % Baso % (Auto) (0.2-1.2) % Sodium (136-145) mmol/L Potassium (3.5-5.1) mmol/L Chloride (98-107) mmol/L Carbon Dioxide (21-32) mmol/L Anion Gap (5-15) mmol/L BUN (7-18) mg/dL Creatinine (0.55-1.02) mg/dL Est Cr Clr Drug Dosing mL/min Estimated GFR (MDRD) Glucose (70-99) mg/dL Lactic Acid (0.4-2.0) mmol/L Calcium (8.5-10.1) mg/dL Corrected Calcium (8.5-10.1) mg/dL Magnesium (1.8-2.4) mg/dL Total Bilirubin (0.2-1.0) mg/dL AST (15-37) U/L ALT (14-59) U/L Alkaline Phosphatase (46-116) U/L Troponin I High Sens 7 (<=51) ng/L C-Reactive Protein 2.5 H (<=0.9) mg/dL Total Protein (6.4-8.2) g/dL Albumin (3.4-5.0) g/dL Globulin Albumin/Globulin Ratio Urine Color Yellow (YELLOW) Urine Appearance Slightly cloudy H (CLEAR) Urine pH 7.5 (5.0-8.0) Ur Specific [place] 1.020 Urine Protein 30 H (NEGATIVE) mg/dL Urine Glucose (UA) Negative (NEGATIVE) mg/dL Urine Ketones Negative (NEGATIVE) mg/dL Urine Occult Blood Negative (NEGATIVE) Urine Nitrite Negative (NEGATIVE) Urine Bilirubin Negative (NEGATIVE) Urine Urobilinogen 0.2 (0.2) EU/dL Ur Leukocyte Esterase Trace H (NEGATIVE) Urine RBC 0-5 (NOT SEEN) /HPF Urine WBC 0-5 (NOT SEEN) /HPF Ur Squamous Epith Cells Not seen (NOT SEEN) /HPF Amorphous Sediment Moderate Urine Bacteria Rare (NOT SEEN) /HPF Urine Mucus Rare H (NOT SEEN) /LPF Meds: Medications Generic Name Dose Route Start Last Admin Trade Name Freq PRN Reason Stop Dose Admin Albuterol 2.5 mg 03/03/21 09:24 Albuterol 0.083% 2.5 Mg/3 Ml Neb Soln NEB Q2H PRN Dyspnea Docusate Sodium 100 mg 03/03/21 09:24 Docusate Sodium 100 Mg Cap PO BID PRN Constipation Sodium Chloride 500 mls @ 15 mls/hr 03/03/21 08:00 03/03/21 09:18 Sodium Chloride 3% IV 15 mls/hr ASDIRECTED CHARMAINE Administration Magnesium Sulfate 4 gm/ Premix 100 mls @ 25 mls/hr 03/03/21 07:57 03/03/21 08:53 IV 03/03/21 11:56 25 mls/hr ONETIME ONE Administration Ondansetron HCl 4 mg 03/03/21 09:24 Ondansetron 4 Mg Tab.Dis PO Q4H PRN nausea, able to take PO Sodium Chloride 10 ml 03/03/21 07:09 Sodium Chloride 0.9% 10 Ml Syringe FLUSH ASDIRECTED PRN Keep Vein Open Discontinued Medications Generic Name Dose Route Start Last Admin Trade Name Freq PRN Reason Stop Dose Admin Sodium Chloride 1,000 mls @ 999 mls/hr 03/03/21 07:11 03/03/21 07:20 Normal Saline IV 03/03/21 08:11 999 mls/hr ONETIME ONE Administration Iopamidol 100 ml 03/03/21 08:52 03/03/21 08:58 Iopamidol 612 Mg/Ml 100 Ml Bottle IVPUSH 03/03/21 08:53 100 ml ONETIME ONE Administration Ondansetron HCl 4 mg 03/03/21 07:11 03/03/21 07:20 Ondansetron 4 Mg/2 Ml Sdv IVPUSH 03/03/21 07:12 4 mg ONETIME ONE Administration - Radiology Interpretation Free Text/Narrative:: ct abdomen pelvis with IV contrast with no acute process. interpreted by Radiology Chest x-ray with COPD interpreted by radiology. - Re-Assessments/Exams Free Text/Narrative Re-Assessment/Exam: 03/03/21 07:39 Patient with some cough from previous this week, newer onset of abdominal pain and vomiting. Unable to take oral fluids. Will start IV fludis, zofran and check labs, ekg and ct abdomen pelvis with IV contrast 03/03/21 07:59 sodium was 119, mag was 1.4. hypertonic saline 3% started at 15mls/hr. magnesium 4 grams ordered. Able to urinate. 03/03/21 08:53 serum osmol, urine osmol, spot sodium urine and repeat BMP ordered.. CT negative abdomen pelvis. chest x-ray negative. did discuss the possibility of chest ct in the future due to chronic hyponatremia without cause. Will await labs. admit for observation, continue hypertonic saline and magnesium. labs on electrolytes every 3-4 hours. repeat mag in the morning. encourage salt intake 03/03/21 09:38 Departure - Departure Time of Disposition: 08:54 Disposition: Refer to Observation Clinical Impression: Hyponatremia, Hypomagnesemia - Discharge Information *PRESCRIPTION DRUG MONITORING PROGRAM REVIEWED*: Not Applicable *COPY OF PRESCRIPTION DRUG MONITORING REPORT IN PATIENT ADELAIDA: Not Applicable Sepsis Event Note (ED) - Evaluation Sepsis Screening Result: No Definite Risk - Focused Exam Vital Signs: Vital Signs Temp Pulse Resp BP Pulse Ox 03/03/21 07:31 63 14 209/88 H 96 03/03/21 06:50 36.1 C 60 24 H 216/103 H 97 - My Orders Last 24 Hours: My Active Orders 03/03/21 07:09 Sodium Chloride 0.9% [Saline Flush] 10 ml FLUSH ASDIRECTED PRN Peripheral IV Insertion Adult [OM.PC] Stat 03/03/21 07:12 EKG 12 Lead [EKG Documentation Completion] [RC] STAT 03/03/21 07:57 Magnesium Sulfate/Water [Magnesium Sulfate in Water 4 GM/100 ML] 4 gm Premix Bag 1 bag IV ONETIME 03/03/21 08:00 Sodium Chloride 3% 500 ml IV ASDIRECTED 03/03/21 08:05 OSMOLALITY - URINE Stat SODIUM, URINE RAND/24HR Stat 03/03/21 10:00 OSMOLALITY - SERUM [REF] Stat - Assessment/Plan Last 24 Hours: My Active Orders 03/03/21 07:09 Sodium Chloride 0.9% [Saline Flush] 10 ml FLUSH ASDIRECTED PRN Peripheral IV Insertion Adult [OM.PC] Stat 03/03/21 07:12 EKG 12 Lead [EKG Documentation Completion] [RC] STAT 03/03/21 07:57 Magnesium Sulfate/Water [Magnesium Sulfate in Water 4 GM/100 ML] 4 gm Premix Bag 1 bag IV ONETIME 03/03/21 08:00 Sodium Chloride 3% 500 ml IV ASDIRECTED 03/03/21 08:05 OSMOLALITY - URINE Stat SODIUM, URINE RAND/24HR Stat 03/03/21 10:00 OSMOLALITY - SERUM [REF] Stat
[2021-03-03 07:46] LABS: CHLORIDE,CL 85 mmol/L (98-107)
[2021-03-03 07:50] LABS: ANION GAP 12.4 mmol/L (5-15); SODIUM,NA 119 mmol/L (136-145)
[2021-03-03] MEDS ORDERED: Magnesium Sulfate/Water 4 GM in Premix Bag 1 BAG IV ONE (07:57)
[2021-03-03] MEDS ORDERED: Sodium Chloride 3% 500 ML IV SCH (08:00)
--- NOTE | 2021-03-03 08:51 | CT ---
[id number] CT/CT Abdomen Pelvis W IV EXAM: CT Abdomen Pelvis W IV CLINICAL DATA: ABDOMINAL PAIN. VOMITING COMPARISON: No previous similar exam is available. FINDINGS: The liver and spleen are unremarkable. The kidneys and adrenals show no abnormality. The aorta and pancreas are within normal limits. There is no bowel distention. There is no bowel wall thickening either. There is no free fluid or free air. There is no adenopathy. The pelvis shows no mass, free fluid, abscess, inflammatory change, or adenopathy. IMPRESSION: NO ACUTE PROCESS. Camacho Vargas MD 03/03/21 [id number] Thank you for allowing us to participate in the care of your patient.
[2021-03-03] MEDS ORDERED: Iopamidol 612 MG/ML 100 ML Bottle IVPUSH ONE (08:52)
--- NOTE | 2021-03-03 08:52 | CR ---
[id number] RAD/RAD Chest PA And Lateral EXAM: RAD Chest PA And Lateral CLINICAL DATA: SHORTNESS OF BREATH COMPARISON: CORRELATION IS MADE WITH THE CAT SCAN OF 2018 FINDINGS: There is mild interstitial fibrosis There is no pneumonia or edema The cardiac silhouette is stable There is air trapping IMPRESSION: COPD Camacho Vargas MD 03/03/21 [id number] Thank you for allowing us to participate in the care of your patient.
[2021-03-03] MEDS ORDERED: Docusate Sodium 100 MG Cap PO PRN (09:24)
[2021-03-03] MEDS ORDERED: Albuterol 0.083% 2.5 MG/3 ML Neb Soln NEB PRN (09:24)
[2021-03-03] MEDS ORDERED: Ondansetron 4 MG Tab.DIS PO PRN (09:24)
[2021-03-03] MEDS ORDERED: Albuterol 2.5 MG/0.5 ML UD Neb INH PRN (10:29)
[2021-03-03 11:21] LABS: CHLORIDE,CL 90 mmol/L (98-107)
[2021-03-03 11:22] LABS: ANION GAP 12.4 mmol/L (5-15); SODIUM,NA 123 mmol/L (136-145)
[2021-03-03] MEDS: Azithromycin 250 MG Tab PO SCH (14:12)
[2021-03-03] MEDS: Benzonatate 100 MG Cap PO PRN ×2 (14:21→20:42)
[2021-03-03 15:49] LABS: CHLORIDE,CL 93 mmol/L (98-107)
[2021-03-03 15:59] LABS: ANION GAP 10.5 mmol/L (5-15); SODIUM,NA 127 mmol/L (136-145)
[2021-03-03] MEDS: Carvedilol 25 MG Tab PO SCH (17:26)
[2021-03-03] MEDS ORDERED: FLUTICASONE INH SCH (20:00)
[2021-03-03] MEDS ORDERED: SALMETEROL INH SCH (20:00)
[2021-03-03] MEDS: Sodium Chloride 0.9% 10 ML Syringe FLUSH PRN ×2 (20:34→20:47)
[2021-03-04 06:26] VITALS: BP 137/49; PULSE 55
--- NOTE | 2021-03-04 06:29 | PCM.DCSUM1 ---
Discharge Summary - Hospital Course Free Text/Narrative:: Patient was admitted for hyponatremia and hypomagnesia. Received hypertonic saline and sodium increased well. No complications awaiting laboratory tests for SIADH, discussed possible chest CT for occult malignancy causing the hyponatremia Diagnosis: Stroke: No Modified [place] Scale: No Symptoms at All Modified [place]ac[place] Scale Score: 0 - Discharge Data Discharge Date: 03/04/21 Discharge Disposition: Home, Self-Care 01 Condition: Good - Referral to Home Health Primary Care Physician: Mayuri Cota MD - Patient Summary/Data Complications: none Labs Pending at D/C: none Recommended Follow-up Testing/Procedures: follow up serum and urine osmolality and suggest Ct of the chest to rule out occult lung tumor as these things can cause significant hyponatremia - Patient Instructions Diet: Usual Diet as Tolerated Driving: May Drive Today Showering/Bathing: May Shower - Discharge Plan *PRESCRIPTION DRUG MONITORING PROGRAM REVIEWED*: Not Applicable *COPY OF PRESCRIPTION DRUG MONITORING REPORT IN PATIENT ADELAIDA: Not Applicable Home Medications: Home Meds Albuterol [Ventolin HFA] 2 puff INH Q4H PRN 12/24/14 [History] Fluticasone Propion/Salmeterol [Advair 250-50 Diskus] 1 puff INH BID 12/24/14 [History] Fluticasone Propionate [Flonase] 2 spray NASBOTH DAILY PRN 12/24/14 [History] Gemfibrozil 1 tab PO DAILY 12/24/14 [History] Aspirin [Halfprin] 81 mg PO DAILY 04/19/18 [History] Cholecalciferol (Vitamin D3) [D3 Dots] 2,000 unit PO DAILY 04/19/18 [History] Cranberry Fruit Concentrate [Azo Cranberry] 250 mg PO DAILY 04/19/18 [History] Naproxen Sodium [Aleve] 440 mg PO DAILY PRN 04/19/18 [History] Omeprazole 20 mg PO DAILY 04/19/18 [History] Sulfamethoxazole/Trimethoprim [Sulfamethoxazole-Tmp Ds Tablet] 1 tab PO DAILY PRN 04/19/18 [History] Triamterene/Hydrochlorothiazid [Triamterene-HCTZ 37.5-25 MG] 1 cap PO DAILY 04/19/18 [History] Azithromycin 250 mg PO DAILY 03/03/21 [History] Dextromethorphan/guaiFENesin [Robitussin DM] 20 ml PO Q4H PRN 03/03/21 [History] Losartan [Cozaar] 50 mg PO DAILY 03/03/21 [History] carvediloL [Carvedilol] 25 mg PO BIDMEALS 03/03/21 [History] tiZANidine HCl [Zanaflex] 2 mg PO TID PRN 03/03/21 [History] Oxygen Therapy Mode: Room Air Patient Handouts: Hypomagnesemia, Hyponatremia, Hyponatremia, [id number] Forms: ED Department Discharge Referrals: Mayuri Cota MD [Primary Care Provider] - - Discharge Summary/Plan Comment DC Time >30 min.: No - Patient Data Vitals - Most Recent: Last Vital Signs Temp 36.8 C 03/04/21 02:00 Pulse 62 03/04/21 02:00 Resp 20 03/04/21 02:00 BP 137/47 L 03/04/21 02:00 Pulse Ox 92 L 03/04/21 02:00 Weight - Most Recent: 63 kg I&O - Last 24 hours: Intake & Output 03/03/21 03/03/21 03/04/21 14:59 22:59 06:59 Intake Total 240 240 276 Balance 240 240 276 Lab Results - Last 24 hrs: Laboratory Results - last 24 hr 03/03/21 03/03/21 03/03/21 Range/Units 07:12 07:12 07:12 WBC 5.4 (4.0-10.0) x10^3/uL RBC 3.85 L (4.00-5.50) x10^6/uL Hgb 12.4 (12.0-16.0) g/dL Hct 33.0 (33.0-47.0) % MCV 85.7 (78.0-93.0) fL MCH 32.2 H (26.0-32.0) pg MCHC 37.6 H (32.0-36.0) g/dL RDW Coeff of April 11.6 (10.0-15.0) % Plt Count 303 D (130-400) x10^3/uL Neut % (Auto) 65.6 (50.0-80.0) % Lymph % (Auto) 16.6 L (25.0-50.0) % [place] % (Auto) 13.7 H (2.0-11.0) % Eos % (Auto) 3.5 (0.0-4.0) % Baso % (Auto) 0.6 (0.2-1.2) % Sodium 119 L* (136-145) mmol/L Potassium 3.4 L (3.5-5.1) mmol/L Chloride 85 L (98-107) mmol/L Carbon Dioxide 25 (21-32) mmol/L Anion Gap 12.4 (5-15) mmol/L BUN 10 (7-18) mg/dL Creatinine 0.6 (0.55-1.02) mg/dL Est Cr Clr Drug Dosing 59.80 mL/min Estimated GFR (MDRD) > 60 Glucose 132 H (70-99) mg/dL Lactic Acid 1.2 (0.4-2.0) mmol/L Calcium 9.2 (8.5-10.1) mg/dL Corrected Calcium 9.4 (8.5-10.1) mg/dL Magnesium 1.4 L (1.8-2.4) mg/dL Total Bilirubin 0.8 (0.2-1.0) mg/dL AST 19 (15-37) U/L ALT 16 (14-59) U/L Alkaline Phosphatase 108 (46-116) U/L Troponin I High Sens (<=51) ng/L C-Reactive Protein (<=0.9) mg/dL Total Protein 7.5 (6.4-8.2) g/dL Albumin 3.7 (3.4-5.0) g/dL Globulin 3.8 Albumin/Globulin Ratio 0.97 Urine Color (YELLOW) Urine Appearance (CLEAR) Urine pH (5.0-8.0) Ur Specific [place] Urine Protein (NEGATIVE) mg/dL Urine Glucose (UA) (NEGATIVE) mg/dL Urine Ketones (NEGATIVE) mg/dL Urine Occult Blood (NEGATIVE) Urine Nitrite (NEGATIVE) Urine Bilirubin (NEGATIVE) Urine Urobilinogen (0.2) EU/dL Ur Leukocyte Esterase (NEGATIVE) Urine RBC (NOT SEEN) /HPF Urine WBC (NOT SEEN) /HPF Ur Squamous Epith Cells (NOT SEEN) /HPF Amorphous Sediment Urine Bacteria (NOT SEEN) /HPF Urine Mucus (NOT SEEN) /LPF SARS CoV-2 RNA Rapid KATIE (NEGATIVE) 03/03/21 03/03/21 03/03/21 Range/Units 07:12 08:05 09:22 WBC (4.0-10.0) x10^3/uL RBC (4.00-5.50) x10^6/uL Hgb (12.0-16.0) g/dL Hct (33.0-47.0) % MCV (78.0-93.0) fL MCH (26.0-32.0) pg MCHC (32.0-36.0) g/dL RDW Coeff of April (10.0-15.0) % Plt Count (130-400) x10^3/uL Neut % (Auto) (50.0-80.0) % Lymph % (Auto) (25.0-50.0) % [place] % (Auto) (2.0-11.0) % Eos % (Auto) (0.0-4.0) % Baso % (Auto) (0.2-1.2) % Sodium (136-145) mmol/L Potassium (3.5-5.1) mmol/L Chloride (98-107) mmol/L Carbon Dioxide (21-32) mmol/L Anion Gap (5-15) mmol/L BUN (7-18) mg/dL Creatinine (0.55-1.02) mg/dL Est Cr Clr Drug Dosing mL/min Estimated GFR (MDRD) Glucose (70-99) mg/dL Lactic Acid (0.4-2.0) mmol/L Calcium (8.5-10.1) mg/dL Corrected Calcium (8.5-10.1) mg/dL Magnesium (1.8-2.4) mg/dL Total Bilirubin (0.2-1.0) mg/dL AST (15-37) U/L ALT (14-59) U/L Alkaline Phosphatase (46-116) U/L Troponin I High Sens 7 (<=51) ng/L C-Reactive Protein 2.5 H (<=0.9) mg/dL Total Protein (6.4-8.2) g/dL Albumin (3.4-5.0) g/dL Globulin Albumin/Globulin Ratio Urine Color Yellow (YELLOW) Urine Appearance Slightly cloudy H (CLEAR) Urine pH 7.5 (5.0-8.0) Ur Specific [place] 1.020 Urine Protein 30 H (NEGATIVE) mg/dL Urine Glucose (UA) Negative (NEGATIVE) mg/dL Urine Ketones Negative (NEGATIVE) mg/dL Urine Occult Blood Negative (NEGATIVE) Urine Nitrite Negative (NEGATIVE) Urine Bilirubin Negative (NEGATIVE) Urine Urobilinogen 0.2 (0.2) EU/dL Ur Leukocyte Esterase Trace H (NEGATIVE) Urine RBC 0-5 (NOT SEEN) /HPF Urine WBC 0-5 (NOT SEEN) /HPF Ur Squamous Epith Cells Not seen (NOT SEEN) /HPF Amorphous Sediment Moderate Urine Bacteria Rare (NOT SEEN) /HPF Urine Mucus Rare H (NOT SEEN) /LPF SARS CoV-2 RNA Rapid KATIE Negative (NEGATIVE) 03/03/21 03/03/21 Range/Units 11:00 15:30 WBC (4.0-10.0) x10^3/uL RBC (4.00-5.50) x10^6/uL Hgb (12.0-16.0) g/dL Hct (33.0-47.0) % MCV (78.0-93.0) fL MCH (26.0-32.0) pg MCHC (32.0-36.0) g/dL RDW Coeff of April (10.0-15.0) % Plt Count (130-400) x10^3/uL Neut % (Auto) (50.0-80.0) % Lymph % (Auto) (25.0-50.0) % [place] % (Auto) (2.0-11.0) % Eos % (Auto) (0.0-4.0) % Baso % (Auto) (0.2-1.2) % Sodium 123 L* 127 L* (136-145) mmol/L Potassium 3.4 L 3.5 (3.5-5.1) mmol/L Chloride 90 L 93 L (98-107) mmol/L Carbon Dioxide 24 27 (21-32) mmol/L Anion Gap 12.4 10.5 (5-15) mmol/L BUN 8 8 (7-18) mg/dL Creatinine 0.6 0.6 (0.55-1.02) mg/dL Est Cr Clr Drug Dosing 59.80 59.80 mL/min Estimated GFR (MDRD) > 60 > 60 Glucose 122 H 107 H (70-99) mg/dL Lactic Acid (0.4-2.0) mmol/L Calcium 8.7 8.6 (8.5-10.1) mg/dL Corrected Calcium (8.5-10.1) mg/dL Magnesium (1.8-2.4) mg/dL Total Bilirubin (0.2-1.0) mg/dL AST (15-37) U/L ALT (14-59) U/L Alkaline Phosphatase (46-116) U/L Troponin I High Sens (<=51) ng/L C-Reactive Protein (<=0.9) mg/dL Total Protein (6.4-8.2) g/dL Albumin (3.4-5.0) g/dL Globulin Albumin/Globulin Ratio Urine Color (YELLOW) Urine Appearance (CLEAR) Urine pH (5.0-8.0) Ur Specific [place] Urine Protein (NEGATIVE) mg/dL Urine Glucose (UA) (NEGATIVE) mg/dL Urine Ketones (NEGATIVE) mg/dL Urine Occult Blood (NEGATIVE) Urine Nitrite (NEGATIVE) Urine Bilirubin (NEGATIVE) Urine Urobilinogen (0.2) EU/dL Ur Leukocyte Esterase (NEGATIVE) Urine RBC (NOT SEEN) /HPF Urine WBC (NOT SEEN) /HPF Ur Squamous Epith Cells (NOT SEEN) /HPF Amorphous Sediment Urine Bacteria (NOT SEEN) /HPF Urine Mucus (NOT SEEN) /LPF SARS CoV-2 RNA Rapid KATIE (NEGATIVE) Med Orders - Current: Current Medications Albuterol (Albuterol 0.083% 2.5 Mg/3 Ml Neb Soln) 2.5 mg NEB Q2H PRN PRN Reason: Dyspnea Albuterol (Albuterol 2.5 Mg/0.5 Ml Ud Neb) 2.5 mg INH Q4H PRN PRN Reason: Shortness of Breath Aspirin (Aspirin 81 Mg Tab.Ec) 81 mg PO DAILY [facility]MAINE Azithromycin (Azithromycin 250 Mg Tab) 250 mg PO DAILY CHARMAINE Stop: 03/05/21 23:59 Last Admin: 03/03/21 14:12 Dose: 250 mg Documented by: Benzonatate (Benzonatate 100 Mg Cap) 100 mg PO TID PRN PRN Reason: Cough Last Admin: 03/03/21 20:42 Dose: 100 mg Documented by: Carvedilol (Carvedilol 25 Mg Tab) 25 mg PO BIDMEALS [facility] Last Admin: 03/03/21 17:26 Dose: 25 mg Documented by: Cholecalciferol (Cholecalciferol (Vitamin D3) 25 Mcg Tab) 50 mcg PO DAILY [facility] Docusate Sodium (Docusate Sodium 100 Mg Cap) 100 mg PO BID PRN PRN Reason: Constipation Fluticasone Propionate (Fluticasone Propionate Nasal [place] 9.9 Ml Bottle Own Med) 0 ml NASBOTH DAILY [facility] Gemfibrozil (Gemfibrozil 600 Mg Tab) 600 mg PO DAILY [facility] Losartan Potassium (Losartan 50 Mg Tab) 50 mg PO DAILY [facility] Non-Formulary Medication (Cranberry Fruit Concentrate [Azo Cranberry]) 250 mg PO DAILY [facility] Fluticasone/Salmeterol (Advair) 250/50 Mcg Disk.W. Dev Own Med 1 puff INH BID [facility] Last Admin: 03/03/21 20:38 Dose: 1 puff Documented by: Omeprazole (Omeprazole 20 Mg Cap.Cr) 20 mg PO ACBRK [facility] Last Admin: 03/04/21 06:20 Dose: 20 mg Documented by: Ondansetron HCl (Ondansetron 4 Mg Tab.Dis) 4 mg PO Q4H PRN PRN Reason: nausea, able to take PO Sodium Chloride (Sodium Chloride 0.9% 10 Ml Syringe) 10 ml FLUSH ASDIRECTED PRN PRN Reason: Keep Vein Open Last Admin: 03/03/21 20:47 Dose: 10 ml Documented by: Triamterene/Hydrochlorothiazide (Hydrochlorothiazide/Triamterene 25-37.5 Tab) 1 each PO DAILY [facility] Discontinued Medications Sodium Chloride (Normal Saline) 1,000 mls @ 999 mls/hr IV ONETIME ONE Stop: 03/03/21 08:11 Last Admin: 03/03/21 07:20 Dose: 999 mls/hr Documented by: Sodium Chloride (Sodium Chloride 3%) 500 mls @ 15 mls/hr IV ASDIRECTED [facility] Last Admin: 03/03/21 09:18 Dose: 15 mls/hr Documented by: Magnesium Sulfate 4 gm/ Premix 100 mls @ 25 mls/hr IV ONETIME ONE Stop: 03/03/21 11:56 Last Admin: 03/03/21 08:53 Dose: 25 mls/hr Documented by: Iopamidol (Iopamidol 612 Mg/Ml 100 Ml Bottle) 100 ml IVPUSH ONETIME ONE Stop: 03/03/21 08:53 Last Admin: 03/03/21 08:58 Dose: 100 ml Documented by: Ondansetron HCl (Ondansetron 4 Mg/2 Ml Sdv) 4 mg IVPUSH ONETIME ONE Stop: 03/03/21 07:12 Last Admin: 03/03/21 07:20 Dose: 4 mg Documented by:
[2021-03-04] MEDS ORDERED: Omeprazole 20 MG Cap.CR PO SCH (07:00)
[2021-03-04 07:12] LABS: ANION GAP 11.3 mmol/L (5-15); CHLORIDE,CL 100 mmol/L (98-107); SODIUM,NA 134 mmol/L (136-145)
[2021-03-04] MEDS ORDERED: FLUTICASONE PROPIONATE NASBOTH SCH (08:00)
[2021-03-04] MEDS ORDERED: Aspirin 81 MG Tab.EC PO SCH (08:00)
[2021-03-04] MEDS ORDERED: Hydrochlorothiazide/Triamterene 25-37.5 Tab PO SCH (08:00)
[2021-03-04] MEDS ORDERED: Losartan 50 MG Tab PO SCH (08:00)
[2021-03-04] MEDS ORDERED: Gemfibrozil 600 MG Tab PO SCH (08:00)
[2021-03-04] MEDS ORDERED: Cholecalciferol (Vitamin D3) 25 MCG Tab PO SCH (08:00)
[2021-03-04] MEDS ORDERED: Cranberry 500 MG Cap PO SCH (08:45)
[2021-03-04] MEDS: Carvedilol 25 MG Tab PO SCH (08:47)
[2021-03-04] MEDS: Azithromycin 250 MG Tab PO SCH (08:47)
--- NOTE | 2021-03-09 18:20 | PCM.SN.2 ---
- Free Text/Narrative Note: Please use the ER note from 03/03 as the admission H & P
== END 2021-03-04 09:50 | disposition home or self-care (01) ==
LOC: VM.ED 06:50 → VM.MS 08:55
PROVIDERS: ADMIT Physician Assistant; ATTEND Physician Assistant
DX: E87.1 Hypo-osmolality and hyponatremia (principal); E83.42 Hypomagnesemia; E78.00 Pure hypercholesterolemia, unspecified; I10 Essential (primary) hypertension; E66.9 Obesity, unspecified; Z98.890 Other specified postprocedural states; Z20.822 Contact with and (suspected) exposure to COVID-19; Z79.899 Other long term (current) drug therapy; Z88.8 Allergy status to other drugs, medicaments and biological substances; Z88.0 Allergy status to penicillin; Z88.5 Allergy status to narcotic agent; Z91.018 Allergy to other foods
CPT/HCPCS: 36415; 71046; 74177; 80048; 80053; 81001; 83605; 83735; 83930; 83935; 84300; 84484; 85025; 86140; 93005; 93010; 96365; 96366; 96375; 99217; 99220; 99285-25; A9270-GY; G0378; J2405; J3475; J7030; J7131; Q9967; U0002

== ENCOUNTER 2021-09-07 20:47 | Emergency (ER) | payer MEDICARE, OTHER ==
[2021-09-07] MEDS ORDERED: Ondansetron 4 MG/2 ML SDV IVPUSH ONE (21:22)
[2021-09-07] MEDS ORDERED: Sodium Chloride 0.9% 10 ML Syringe FLUSH PRN (21:22)
[2021-09-07] MEDS ORDERED: Sodium Chloride 0.9% 1,000 ML IV ONE (21:22)
--- NOTE | 2021-09-07 21:22 | EDM.PDOC ---
ED HPI GENERAL MEDICAL PROBLEM - General Stated Complaint: NOT FEELING WELL Time Seen by Provider: 09/07/21 21:14 Source of Information: Reports: Patient - History of Present Illness INITIAL COMMENTS - FREE TEXT/NARRATIVE: Christy is an 81 y/o female who comes to the ER via POV accompanied by her . She reports felling dizzy and just "not good". She has had cramps in her legs and has not been able to sleep because of it. She has had past issues with electrolyte imbalances requiring hospitalization and she reports that she feels very similar to those episodes. She was seen in the [facility] a couple days ago and treated for a UTI and she hasn't felt very well since. - Related Data Allergies Allergy/AdvReac Type Severity Reaction Status Date / Time clemastine [From Tavist] Allergy Other Verified 03/04/21 15:07 Penicillins Allergy Rash Verified 03/03/21 07:22 pseudoephedrine [From Tavist] Allergy Other Verified 03/04/21 15:07 soybean Allergy Edema Verified 03/03/21 07:22 acetaminophen AdvReac Nausea Verified 03/04/21 13:52 [From Lorcet 10/650] hydrocodone AdvReac Nausea Verified 03/04/21 13:52 [From Lorcet 10/650] [id number] Allergy Other Uncoded 03/03/21 07:22 Home Meds: Home Meds Fluticasone Propionate [Flonase] 2 spray NASBOTH DAILY PRN 12/24/14 [History] Naproxen Sodium [Aleve] 440 mg PO DAILY PRN 04/19/18 [History] Sulfamethoxazole/Trimethoprim [Sulfamethoxazole-Tmp Ds Tablet] 1 tab PO DAILY PRN 04/19/18 [History] Azithromycin 250 mg PO DAILY 03/03/21 [History] Dextromethorphan/guaiFENesin [Robitussin DM] 20 ml PO Q4H PRN 03/03/21 [History] tiZANidine HCl [Zanaflex] 2 mg PO TID PRN 03/03/21 [History] Albuterol [Proventil Neb Soln] 2.5 mg INH Q4H PRN neb 03/04/21 [Rx] Albuterol [Proventil Neb Soln] 2.5 mg NEB Q2H PRN neb 03/04/21 [Rx] Aspirin [Halfprin] 81 mg PO DAILY tab.ec 03/04/21 [Rx] Cholecalciferol (Vitamin D3) [Vitamin D3] 50 mcg PO DAILY tablet 03/04/21 [Rx] Cranberry Fruit Concentrate [Azo Cranberry] 250 mg PO DAILY 03/04/21 [Rx] Docusate Sodium [Colace] 100 mg PO BID PRN cap 03/04/21 [Rx] Fluticasone Propionate 0 ml NASBOTH DAILY bottle 03/04/21 [Rx] Fluticasone/Salmeterol 1 puff INH BID 03/04/21 [Rx] HCTZ/Triamterene [Maxzide 25-37.5 MG] 1 each PO DAILY tablet 03/04/21 [Rx] Losartan [Cozaar] 50 mg PO DAILY tablet 03/04/21 [Rx] Omeprazole 20 mg PO ACBRK cap.cr 03/04/21 [Rx] Ondansetron [Zofran ODT] 4 mg PO Q4H PRN tab.dis 03/04/21 [Rx] Sodium Chloride 0.9% [Saline Flush] 10 ml FLUSH ASDIRECTED PRN syringe 03/04/21 [Rx] carvediloL [Coreg] 25 mg PO BIDMEALS tablet 03/04/21 [Rx] gemfibroziL [Lopid] 600 mg PO DAILY tablet 03/04/21 [Rx] Past Medical History HEENT History: Reports: Allergic Rhinitis, Hard of Hearing Other HEENT History: esophagitis Cardiovascular History: Reports: Afib, High Cholesterol, Hypertension Respiratory History: Reports: COPD Other Respiratory History: chronic obstructive respiratory disease. lung nodule. panilobular emphysema Gastrointestinal History: Reports: None Genitourinary History: Reports: UTI, Recurrent Other Genitourinary History: midline cystocele [employer] History: Reports: None Musculoskeletal History: Reports: Arthritis, Osteoarthritis Other Musculoskeletal History: abnormal leg movement. acute bilateral low back pain with bilateral sciatica. disorder of bone. right ankle pain. shoulder pain. DJD. sprain and strain of sacroiliac ligament. 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 Endocrine Surgical History: Reports: None Neurological Surgical History: Reports: None Musculoskeletal Surgical History: Reports: Carpal Tunnel, Joint Replacement, Knee Replacement Other Musculoskeletal Surgeries/Procedures:: total ankle replacement (right) Social & Family History - Family History Family Medical History: No Pertinent Family History - Caffeine Use Caffeine Use: Reports: None Review of Systems - Review of Systems Review Of Systems: See Below Constitutional: Reports: Weakness Eyes: Reports: No Symptoms Ears: Reports: Dizziness Nose: Reports: No Symptoms Mouth/Throat: Reports: No Symptoms Respiratory: Reports: No Symptoms Cardiovascular: Reports: No Symptoms GI/Abdominal: Reports: Decreased Appetite, Nausea Genitourinary: Reports: Dysuria Musculoskeletal: Reports: Other (Leg cramps) Skin: Reports: No Symptoms Neurological: Reports: Dizziness, Weakness Psychiatric: Reports: No Symptoms ED EXAM, GENERAL - Physical Exam Exam: See Below General Appearance: Alert, WD/WN, No Apparent Distress (Elderly female.) Eye Exam: Bilateral Eye: PERRL Ears: Normal External Exam, Normal Canal, Hearing Grossly Normal, Normal TMs Nose: Normal Inspection, Normal Mucosa Throat/Mouth: Other (Tongue appears slightly dry.) Head: Atraumatic, Normocephalic Neck: Supple Respiratory/Chest: No Respiratory Distress, Lungs Clear Cardiovascular: Normal Peripheral Pulses, Regular Rate, Rhythm GI/Abdominal: Normal Bowel Sounds, Soft, Non-Tender (Female) Exam: Deferred Rectal (Female) Exam: Deferred Back Exam: Normal Inspection Extremities: Normal Inspection, Normal Range of Motion, No Pedal Edema, Normal Capillary Refill Neurological: Alert, Oriented, CN II-XII Intact Psychiatric: Normal Affect, Normal Mood Skin Exam: Warm, Dry, Intact, Normal Color Lymphatic: No Adenopathy #1 Interpretation EKG Date: 09/07/21 Time: 21:36 Rhythm: NSR Rate (Beats/Min): 62 [place]: Normal P-Wave: Present QRS: Normal ST-T: Normal QT: Normal EKG Interpretation Comments: NSR Course - Vital Signs Text/Narrative:: 2113 The patient was seen by the GIFT MANAGER. Labs and EKG ordered. She was given a IV fluids and Zofran. 2215 Labs reviewed. Note Om=930, Chloride=95, BUN=21, Optical Instrument Assembler=1.2, Ztmrrwc=571. Urine SG=1.020. Has been on Bactrim since 09/05 and also takes Dyazide.The combination may have resulted in the hyponatremia. Will have her hold the med for the next couple days and then finish the Bactrim and then have her follow up with Dr Cota for repeat las and recheck. Patient felt better after IV fluids. Written instructions were given and she she left the ER in stable condition. Last Recorded V/S: Last Vital Signs Temp 36.6 C 09/07/21 20:50 Pulse 61 09/07/21 21:48 Resp 24 H 09/07/21 21:48 BP 174/73 H 09/07/21 21:48 Pulse Ox 97 09/07/21 21:48 - Orders/Labs/Meds Orders: Active Orders 24 hr Category Date Time Status CULTURE URINE [RM] Stat Lab 09/07/21 21:41 Received Sodium Chloride 0.9% [Saline Flush] Med 09/07/21 21:22 Ordered 10 ml FLUSH ASDIRECTED PRN Saline Lock Insert [OM.PC] Stat Oth 09/07/21 21:22 Ordered Medication Orders Sodium Chloride (Sodium Chloride 0.9% 10 Ml Syringe) 10 ml FLUSH ASDIRECTED PRN PRN Reason: Keep Vein Open Labs: Laboratory Tests 09/07/21 09/07/21 09/07/21 Range/Units 21:06 21:06 21:41 WBC 5.0 (4.0-10.0) x10^3/uL RBC 3.73 L (4.00-5.50) x10^6/uL Hgb 11.9 L (12.0-16.0) g/dL Hct 33.4 (33.0-47.0) % MCV 89.5 (78.0-93.0) fL MCH 31.9 (26.0-32.0) pg MCHC 35.6 (32.0-36.0) g/dL RDW Coeff of April 12.2 (10.0-15.0) % Plt Count 291 (130-400) x10^3/uL Immature Gran % (Auto) 0.20 (0.00-0.43) % Neut % (Auto) 58.5 (50.0-80.0) % Lymph % (Auto) 23.4 L (25.0-50.0) % [place] % (Auto) 12.1 H (2.0-11.0) % Eos % (Auto) 4.6 H (0.0-4.0) % Baso % (Auto) 1.2 (0.2-1.2) % Neut # (Auto) 2.9 (1.8-7.7) x10^3/uL Lymph # (Auto) 1.2 (1.0-4.8) x10^3/uL [place] # (Auto) 0.6 (0.0-0.8) x10^3/uL Eos # (Auto) 0.2 (0.0-0.5) x10^3/uL Baso # (Auto) 0.1 (0.0-0.2) x10^3/uL Immature Gran # (Auto) 0.01 (0.00-0.07) x10^3/uL Sodium 131 L (136-145) mmol/L Potassium 4.2 (3.5-5.1) mmol/L Chloride 95 L (98-107) mmol/L Carbon Dioxide 25 (21-32) mmol/L Anion Gap 15.2 H (5-15) mmol/L BUN 21 H (7-18) mg/dL Creatinine 1.2 H (0.55-1.02) mg/dL Est Cr Clr Drug Dosing 29.38 mL/min Estimated GFR (MDRD) 43 Glucose 124 H (70-99) mg/dL Calcium 9.5 (8.5-10.1) mg/dL Corrected Calcium 9.7 (8.5-10.1) mg/dL Magnesium 1.9 (1.8-2.4) mg/dL Total Bilirubin 0.3 (0.2-1.0) mg/dL AST 14 L (15-37) U/L ALT 15 (14-59) U/L Alkaline Phosphatase 111 (46-116) U/L Total Protein 7.5 (6.4-8.2) g/dL Albumin 3.8 (3.4-5.0) g/dL Globulin 3.7 Albumin/Globulin Ratio 1.03 TSH, Ultra Sensitive 0.409 (0.358-3.74) uIU/mL Urine Color Yellow (YELLOW) Urine Appearance Clear (CLEAR) Urine pH 6.5 (5.0-8.0) Ur Specific [place] 1.020 Urine Protein Negative (NEGATIVE) mg/dL Urine Glucose (UA) Negative (NEGATIVE) mg/dL Urine Ketones Negative (NEGATIVE) mg/dL Urine Occult Blood Negative (NEGATIVE) Urine Nitrite Negative (NEGATIVE) Urine Bilirubin Negative (NEGATIVE) Urine Urobilinogen 0.2 (0.2) EU/dL Ur Leukocyte Esterase Trace H (NEGATIVE) Urine RBC 0-5 (NOT SEEN) /HPF Urine WBC 0-5 (NOT SEEN) /HPF Ur Squamous Epith Cells Rare (NOT SEEN) /HPF Urine Bacteria Not seen (NOT SEEN) /HPF Urine Mucus Not seen (NOT SEEN) /LPF Meds: Medications Generic Name Dose Route Start Last Admin Trade Name Freq PRN Reason Stop Dose Admin Sodium Chloride 10 ml 09/07/21 21:22 Sodium Chloride 0.9% 10 Ml Syringe FLUSH ASDIRECTED PRN Keep Vein Open Discontinued Medications Generic Name Dose Route Start Last Admin Trade Name Freq PRN Reason Stop Dose Admin Sodium Chloride 1,000 mls @ 999 mls/hr 09/07/21 21:22 09/07/21 21:30 Normal Saline IV 09/07/21 22:22 999 mls/hr ONETIME ONE Administration Ondansetron HCl 4 mg 09/07/21 21:22 09/07/21 21:33 Ondansetron 4 Mg/2 Ml Sdv IVPUSH 09/07/21 21:23 4 mg ONETIME ONE Administration Departure - Departure Time of Disposition: 22:29 Disposition: Home, Self-Care 01 Condition: Good Clinical Impression: Hyponatremia UTI (urinary tract infection) Qualifiers: Urinary tract infection type: acute cystitis Hematuria presence: without hematuria Qualified Code(s): N30.00 - Acute cystitis without hematuria - Discharge Information Instructions: Hyponatremia, [id number], Urinary Tract Infection, Adult, [id number] Referrals: Mayuri Cota MD [Primary Care Provider] - Additional Instructions: -Hold Triamterine/HCTX the next 2 days. -Finish course of Bactrim for the UTI -Stay hydrated -Rest as needed -Follow up with Dr Cota this week for recheck of labs and med review. -Return as needed to the ER Sepsis Event Note (ED) - Focused Exam Vital Signs: Vital Signs Temp Pulse Resp BP Pulse Ox 09/07/21 21:48 61 24 H 174/73 H 97 09/07/21 20:50 36.6 C 65 18 215/87 H 97 - Problem List & Annotations (1) Hyponatremia SNOMED Code(s): 60078979 Code(s): E87.1 - HYPO-OSMOLALITY AND HYPONATREMIA Status: Acute Current Visit: Yes Annotation/Comment:: -Ghrrdj=628. BUN=21, Optical Instrument Assembler=1.2. Possible due to diuretic use. Will have patient hold the Dyazide and readdress with her PCP in the next couple days. Given a liter of NS and Zofran 4mg IVP and felt better. (2) UTI (urinary tract infection) SNOMED Code(s): 45980472 Code(s): N39.0 - URINARY TRACT INFECTION, SITE NOT SPECIFIED Status: Acute Current Visit: Yes Annotation/Comment:: Finish course of Bactrim as prescibed at [facility] Qualifiers: Urinary tract infection type: acute cystitis Hematuria presence: without hematuria Qualified Code(s): N30.00 - Acute cystitis without hematuria - Problem List Review Problem List Initiated/Reviewed/Updated: Yes - My Orders Last 24 Hours: My Active Orders 09/07/21 21:22 Sodium Chloride 0.9% [Saline Flush] 10 ml FLUSH ASDIRECTED PRN Saline Lock Insert [OM.PC] Stat 09/07/21 21:41 CULTURE URINE [RM] Stat - Assessment/Plan Last 24 Hours: My Active Orders 09/07/21 21:22 Sodium Chloride 0.9% [Saline Flush] 10 ml FLUSH ASDIRECTED PRN Saline Lock Insert [OM.PC] Stat 09/07/21 21:41 CULTURE URINE [RM] Stat Plan: As above
[2021-09-07 21:59] LABS: ANION GAP 15.2 mmol/L (5-15)
[2021-09-07 22:55] VITALS: BP 174/72; PULSE 60
== END 2021-09-07 22:52 | disposition home or self-care (01) ==
LOC: VM.ED 20:47
DX: N30.00 Acute cystitis without hematuria (principal); E87.1 Hypo-osmolality and hyponatremia; I48.91 Unspecified atrial fibrillation; J44.9 Chronic obstructive pulmonary disease, unspecified; E78.00 Pure hypercholesterolemia, unspecified; I10 Essential (primary) hypertension; M19.90 Unspecified osteoarthritis, unspecified site; Z88.0 Allergy status to penicillin; Z91.018 Allergy to other foods; Z88.5 Allergy status to narcotic agent; Z79.899 Other long term (current) drug therapy; Z79.82 Long term (current) use of aspirin
CPT/HCPCS: 80053; 81001; 83735; 84443; 85025; 87086; 87088; 93005; 93010; 96374; 99284; 99284-25; J2405; J7030

== ENCOUNTER 2021-12-09 20:36 | Emergency (ER) | payer MEDICARE, OTHER ==
[2021-12-09 20:56] VITALS: PULSE 70
[2021-12-09 21:54] VITALS: BP 174/68
[2021-12-09] MEDS: Acetaminophen/Codeine 300-30 MG Tab PO ONE (22:12)
[2021-12-09] MEDS: Ondansetron 4 MG Tab.DIS PO ONE (22:14)
== END 2021-12-09 22:03 | disposition home or self-care (01) ==
LOC: VM.ED 20:36
DX: M25.551 Pain in right hip (principal); I10 Essential (primary) hypertension; I48.91 Unspecified atrial fibrillation; J44.9 Chronic obstructive pulmonary disease, unspecified; Z79.899 Other long term (current) drug therapy; Z88.8 Allergy status to other drugs, medicaments and biological substances; Z88.0 Allergy status to penicillin; Z91.018 Allergy to other foods; Z88.5 Allergy status to narcotic agent
CPT/HCPCS: 36415; 80048; 81001; 99283; 99284

== ENCOUNTER 2023-06-08 18:53 | Inpatient (IN) | payer MEDICARE, OTHER ==
[2023-06-08 19:29] LABS: BASOPHILS PERCENT AUTO 0.4 % (0.2-1.2); EOSINOPHILS PERCENT AUTO 0.1 % (0.0-4.0); HEMATOCRIT 31.4 % (33.0-47.0); HEMOGLOBIN 11.4 g/dL (12.0-16.0); IMMATURE GRAN ABSOLUTE AUTO 0.02 x10^3/uL (0.00-0.07); LYMPHOCYTES ABSOLUTE AUTO 0.4 x10^3/uL (1.0-4.8); LYMPHOCYTES PERCENT AUTO 5.7 % (25.0-50.0); MEAN CORPUSCULAR HEMOGLOBIN 31.1 pg (26.0-32.0); MEAN CORPUSCULAR HGB CONC 36.3 g/dL (32.0-36.0); MEAN CORPUSCULAR VOLUME 85.6 fL (78.0-93.0); MONOCYTES ABSOLUTE AUTO 0.2 x10^3/uL (0.0-0.8); MONOCYTES PERCENT AUTO 2.1 % (2.0-11.0); NEUTROPHILS ABSOLUTE AUTO 6.5 x10^3/uL (1.8-7.7); NEUTROPHILS PERCENT AUTO 91.4 % (50.0-80.0); PLATELET COUNT,PLT 289 x10^3/uL (130-400); RED BLOOD CELL COUNT 3.67 x10^6/uL (4.00-5.50); WHITE BLOOD CELL COUNT,WBC 7.1 x10^3/uL (4.0-10.0)
[2023-06-08 19:49] LABS: A/G RATIO 0.95; ALANINE AMINOTRANSFERASE,ALT 15 U/L (14-59); ALBUMIN 3.6 g/dL (3.4-5.0); ALKALINE PHOSPHATASE 130 U/L (46-116); ASPARTATE AMNIOTRANSFERASE,AST 21 U/L (15-37); BILIRUBIN TOTAL 1.3 mg/dL (0.2-1.0); BLOOD UREA NITROGEN,BUN 9 mg/dL (7-18); C-REACTIVE PROTEIN 4.34 mg/dL (<=0.30); CALCIUM 9.2 mg/dL (8.5-10.1); CARBON DIOXIDE,CO2 24 mmol/L (21-32); CHLORIDE,CL 80 mmol/L (98-107); CREATININE 0.5 mg/dL (0.55-1.02); GLUCOSE RANDOM 151 mg/dL (70-99); LIPASE 35 U/L (19-71); PROTEIN TOTAL,TP 7.4 g/dL (6.4-8.2)
[2023-06-08 19:51] LABS: ESTIMATED GFR 92 mL/min (>=60); SODIUM,NA 116 mmol/L (136-145)
[2023-06-08] MEDS ORDERED: Ondansetron 4 MG/2 ML SDV IVPUSH ONE (20:49)
[2023-06-08] MEDS ORDERED: Sodium Chloride 0.9% 1,000 ML IV SCH (21:00)
[2023-06-08] MEDS ORDERED: Sodium Chloride 3% 500 ML IV SCH (21:15)
[2023-06-08] MEDS ORDERED: Ondansetron 4 MG/2 ML SDV IV PRN (21:57)
[2023-06-08] MEDS ORDERED: Ondansetron 4 MG Tab.DIS PO PRN (21:57)
[2023-06-08] MEDS ORDERED: Carvedilol 25 MG Tab PO ONE (22:31)
[2023-06-08] MEDS: cefTRIAXone 1 GM Vial IVPUSH SCH (23:28)
[2023-06-08] MEDS: Azithromycin 500 MG in Sodium Chloride 0.9% 250 ML IV SCH (23:29)
[2023-06-09 00:17] LABS: BILIRUBIN,URINE NEGATIVE (NEGATIVE); COLOR,URINE YELLOW (YELLOW); GLUCOSE,URINE NEGATIVE (NEGATIVE); KETONES,URINE 40 mg/dL (NEGATIVE); LEUKOCYTE ESTERASE,URINE TRACE (NEGATIVE); NITRITE,URINE NEGATIVE (NEGATIVE); OCCULT BLOOD,URINE NEGATIVE (NEGATIVE); PROTEIN,URINE 100 mg/dL (NEGATIVE); UROBILINOGEN,URINE 0.2 EU/dL (0.2)
[2023-06-09] MEDS: Albuterol/Ipratropium 3.0-0.5 MG/3 ML Neb Soln NEB SCH ×4 (00:17→18:12)
[2023-06-09 00:19] LABS: APPEARANCE,URINE CLOUDY (CLEAR)
[2023-06-09 00:28] LABS: BACTERIA,URINE MODERATE /HPF (NOT SEEN); RBC,URINE 0-5 /HPF (NOT SEEN); SQUAMOUS EPITHELIAL CELLS,UR FEW /HPF (NOT SEEN)
[2023-06-09 00:29] LABS: AMORPHOUS SEDIMENT,URINE FEW; MUCUS,URINE OCCASIONAL /LPF (NOT SEEN)
[2023-06-09] MEDS ORDERED: LORazepam 0.5 MG Tab PO ONE (00:43)
[2023-06-09] MEDS ORDERED: FLU (Fluad Quad) 2023-24(65UP)/MF59C/PF 60 MCG/0.5 ML Syringe IM ONE (04:15)
[2023-06-09 06:42] LABS: HEMATOCRIT 28.7 % (33.0-47.0); HEMOGLOBIN 10.5 g/dL (12.0-16.0); IMMATURE GRAN ABSOLUTE AUTO 0.01 x10^3/uL (0.00-0.07); LYMPHOCYTES PERCENT AUTO 8.3 % (25.0-50.0); MEAN CORPUSCULAR HEMOGLOBIN 31.2 pg (26.0-32.0); MEAN CORPUSCULAR HGB CONC 36.6 g/dL (32.0-36.0); MEAN CORPUSCULAR VOLUME 85.2 fL (78.0-93.0); MONOCYTES ABSOLUTE AUTO 0.3 x10^3/uL (0.0-0.8); MONOCYTES PERCENT AUTO 4.6 % (2.0-11.0); NEUTROPHILS ABSOLUTE AUTO 5.5 x10^3/uL (1.8-7.7); NEUTROPHILS PERCENT AUTO 86.9 % (50.0-80.0); PLATELET COUNT,PLT 262 x10^3/uL (130-400); RED BLOOD CELL COUNT 3.37 x10^6/uL (4.00-5.50); WHITE BLOOD CELL COUNT,WBC 6.4 x10^3/uL (4.0-10.0)
[2023-06-09 07:01] LABS: LYMPHOCYTES ABSOLUTE AUTO 0.5 x10^3/uL (1.0-4.8)
[2023-06-09 07:06] LABS: A/G RATIO 0.88; BILIRUBIN TOTAL 0.8 mg/dL (0.2-1.0); CALCIUM 8.3 mg/dL (8.5-10.1); CREATININE 0.5 mg/dL (0.55-1.02); EST CRCL DRUG DOSING (CG) 65.06 mL/min; POTASSIUM,K 3.3 mmol/L (3.5-5.1); PROTEIN TOTAL,TP 6.4 g/dL (6.4-8.2)
[2023-06-09 07:08] LABS: ANION GAP 14.3 mmol/L (5-15)
[2023-06-09] MEDS: Arformoterol 15 MCG/2 ML Neb Soln NEB SCH ×2 (07:17→20:10)
[2023-06-09] MEDS ORDERED: Sodium Chloride 3% 500 ML IV SCH (07:30)
[2023-06-09] MEDS ORDERED: LORazepam 0.5 MG Tab PO PRN (08:31)
[2023-06-09] MEDS ORDERED: Acetaminophen 500 MG Tab PO PRN (08:34)
[2023-06-09] MEDS ORDERED: Meclizine 25 MG Tab PO PRN (08:35)
[2023-06-09] MEDS: Carvedilol 25 MG Tab PO SCH ×2 (09:02→17:47)
[2023-06-09] MEDS: Omeprazole 20 MG Cap.CR PO SCH (09:02)
[2023-06-09] MEDS: Aspirin 81 MG Tab.EC PO SCH (09:02)
[2023-06-09] MEDS: Losartan 50 MG Tab PO SCH (09:02)
[2023-06-09] MEDS ORDERED: Potassium Chloride 10 MEQ Tab.ER PO ONE ×2 (10:09→14:00)
[2023-06-09] MEDS ORDERED: Magnesium Sulfate/Water 4 GM in Premix Bag 1 BAG IV ONE (11:00)
[2023-06-09] MEDS: Furosemide 20 MG Tab PO SCH (12:46)
[2023-06-09 13:24] LABS: POTASSIUM,K 3.4 mmol/L (3.5-5.1)
[2023-06-09] MEDS ORDERED: HYDROmorphone 2 MG Tab PO ONE (15:45)
[2023-06-09] MEDS: cefTRIAXone 1 GM Vial IVPUSH SCH (20:10)
[2023-06-09] MEDS: Enoxaparin 40 MG/0.4 ML Syringe SUBCUT SCH (20:10)
[2023-06-09] MEDS: Azithromycin 500 MG in Sodium Chloride 0.9% 250 ML IV SCH (20:14)
[2023-06-10] MEDS: Albuterol/Ipratropium 3.0-0.5 MG/3 ML Neb Soln NEB SCH ×4 (01:20→18:15)
[2023-06-10] MEDS: Arformoterol 15 MCG/2 ML Neb Soln NEB SCH ×2 (06:14→20:14)
[2023-06-10] MEDS: Omeprazole 20 MG Cap.CR PO SCH (06:14)
[2023-06-10 07:00] LABS: BASOPHILS PERCENT AUTO 0.8 % (0.2-1.2); EOSINOPHILS ABSOLUTE AUTO 0.1 x10^3/uL (0.0-0.5); EOSINOPHILS PERCENT AUTO 2.4 % (0.0-4.0); HEMATOCRIT 27.8 % (33.0-47.0); HEMOGLOBIN 9.8 g/dL (12.0-16.0); IMMATURE GRAN ABSOLUTE AUTO 0.01 x10^3/uL (0.00-0.07); LYMPHOCYTES PERCENT AUTO 21.1 % (25.0-50.0); MEAN CORPUSCULAR HEMOGLOBIN 31.3 pg (26.0-32.0); MEAN CORPUSCULAR HGB CONC 35.3 g/dL (32.0-36.0); MEAN CORPUSCULAR VOLUME 88.8 fL (78.0-93.0); MONOCYTES ABSOLUTE AUTO 0.7 x10^3/uL (0.0-0.8); MONOCYTES PERCENT AUTO 13.6 % (2.0-11.0); NEUTROPHILS ABSOLUTE AUTO 3.1 x10^3/uL (1.8-7.7); NEUTROPHILS PERCENT AUTO 61.9 % (50.0-80.0); PLATELET COUNT,PLT 261 x10^3/uL (130-400); RED BLOOD CELL COUNT 3.13 x10^6/uL (4.00-5.50); WHITE BLOOD CELL COUNT,WBC 4.9 x10^3/uL (4.0-10.0)
[2023-06-10 07:18] LABS: CALCIUM 8.3 mg/dL (8.5-10.1); CREATININE 0.6 mg/dL (0.55-1.02); EST CRCL DRUG DOSING (CG) 53.75 mL/min; POTASSIUM,K 3.7 mmol/L (3.5-5.1)
[2023-06-10 07:19] LABS: ANION GAP 10.7 mmol/L (5-15)
[2023-06-10] MEDS ORDERED: Cholecalciferol (Vitamin D3) 25 MCG Tab PO SCH (09:00)
[2023-06-10] MEDS: Aspirin 81 MG Tab.EC PO SCH (09:04)
[2023-06-10] MEDS: Azithromycin 250 MG Tab PO SCH (09:04)
[2023-06-10] MEDS: Carvedilol 25 MG Tab PO SCH ×2 (09:04→18:15)
[2023-06-10] MEDS: Cefuroxime 250 MG Tab PO SCH ×2 (09:04→20:14)
[2023-06-10] MEDS: Losartan 50 MG Tab PO SCH (09:04)
[2023-06-10] MEDS: Furosemide 20 MG Tab PO SCH (09:05)
[2023-06-10] MEDS: Enoxaparin 40 MG/0.4 ML Syringe SUBCUT SCH (20:13)
[2023-06-11] MEDS: Albuterol/Ipratropium 3.0-0.5 MG/3 ML Neb Soln NEB SCH ×2 (01:41→06:05)
[2023-06-11 06:03] VITALS: BP 173/73; PULSE 67
[2023-06-11] MEDS: Omeprazole 20 MG Cap.CR PO SCH (06:05)
[2023-06-11 06:43] LABS: BASOPHILS ABSOLUTE AUTO 0.1 x10^3/uL (0.0-0.2); BASOPHILS PERCENT AUTO 1.2 % (0.2-1.2); EOSINOPHILS ABSOLUTE AUTO 0.3 x10^3/uL (0.0-0.5); EOSINOPHILS PERCENT AUTO 5.2 % (0.0-4.0); HEMATOCRIT 29.6 % (33.0-47.0); HEMOGLOBIN 10.4 g/dL (12.0-16.0); IMMATURE GRAN ABSOLUTE AUTO 0.01 x10^3/uL (0.00-0.07); LYMPHOCYTES ABSOLUTE AUTO 1.3 x10^3/uL (1.0-4.8); LYMPHOCYTES PERCENT AUTO 26.1 % (25.0-50.0); MEAN CORPUSCULAR HEMOGLOBIN 31.2 pg (26.0-32.0); MEAN CORPUSCULAR HGB CONC 35.1 g/dL (32.0-36.0); MEAN CORPUSCULAR VOLUME 88.9 fL (78.0-93.0); MONOCYTES ABSOLUTE AUTO 0.7 x10^3/uL (0.0-0.8); MONOCYTES PERCENT AUTO 13.5 % (2.0-11.0); NEUTROPHILS ABSOLUTE AUTO 2.6 x10^3/uL (1.8-7.7); NEUTROPHILS PERCENT AUTO 53.8 % (50.0-80.0); PLATELET COUNT,PLT 276 x10^3/uL (130-400); RED BLOOD CELL COUNT 3.33 x10^6/uL (4.00-5.50); WHITE BLOOD CELL COUNT,WBC 4.8 x10^3/uL (4.0-10.0)
[2023-06-11] MEDS: Arformoterol 15 MCG/2 ML Neb Soln NEB SCH (06:51)
[2023-06-11 07:15] LABS: ANION GAP 8.8 mmol/L (5-15); C-REACTIVE PROTEIN 0.98 mg/dL (<=0.30); CALCIUM 8.5 mg/dL (8.5-10.1); CREATININE 0.6 mg/dL (0.55-1.02); EST CRCL DRUG DOSING (CG) 53.75 mL/min; POTASSIUM,K 3.8 mmol/L (3.5-5.1)
[2023-06-11] MEDS: Losartan 50 MG Tab PO SCH (09:34)
[2023-06-11] MEDS: Cefuroxime 250 MG Tab PO SCH (09:34)
[2023-06-11] MEDS: Carvedilol 25 MG Tab PO SCH (09:35)
[2023-06-11] MEDS: Aspirin 81 MG Tab.EC PO SCH (09:35)
[2023-06-11] MEDS: Azithromycin 250 MG Tab PO SCH (09:35)
[2023-06-11] MEDS: Furosemide 20 MG Tab PO SCH (09:35)
== END 2023-06-11 10:25 | disposition home or self-care (01) | DRG 194 ==
LOC: VM.ED 18:53 → VM.MS 21:00
PROVIDERS: ADMIT Internal Medicine; ATTEND Family Medicine
DX: J18.9 Pneumonia, unspecified organism (principal); E87.1 Hypo-osmolality and hyponatremia; J44.1 Chronic obstructive pulmonary disease with (acute) exacerbation; N39.0 Urinary tract infection, site not specified; J44.9 Chronic obstructive pulmonary disease, unspecified; M19.90 Unspecified osteoarthritis, unspecified site; F03.90 Unspecified dementia, unspecified severity, without behavioral disturbance, psychotic disturbance, mood disturbance, and anxiety; K21.9 Gastro-esophageal reflux disease without esophagitis; I25.10 Atherosclerotic heart disease of native coronary artery without angina pectoris; M81.0 Age-related osteoporosis without current pathological fracture; I11.0 Hypertensive heart disease with heart failure; I50.9 Heart failure, unspecified; D64.9 Anemia, unspecified; E83.42 Hypomagnesemia; M19.011 Primary osteoarthritis, right shoulder; M19.012 Primary osteoarthritis, left shoulder; R73.9 Hyperglycemia, unspecified; B96.89 Other specified bacterial agents as the cause of diseases classified elsewhere; Z88.0 Allergy status to penicillin; Z96.653 Presence of artificial knee joint, bilateral; Z96.643 Presence of artificial hip joint, bilateral; Z88.8 Allergy status to other drugs, medicaments and biological substances; Z91.018 Allergy to other foods; J43.1 Panlobular emphysema; I48.91 Unspecified atrial fibrillation; Z79.2 Long term (current) use of antibiotics; Z90.89 Acquired absence of other organs; Z90.49 Acquired absence of other specified parts of digestive tract; Z90.710 Acquired absence of both cervix and uterus; I25.2 Old myocardial infarction; Z87.81 Personal history of (healed) traumatic fracture; Z98.51 Tubal ligation status; I10 Essential (primary) hypertension; E78.00 Pure hypercholesterolemia, unspecified; Z79.82 Long term (current) use of aspirin; Z79.899 Other long term (current) drug therapy
CPT/HCPCS: 36415; 71046; 80048; 80053; 81001; 82947; 83690; 83735; 83880; 84132; 84295; 85025; 86140; 87086; 87088; 93005; 94640; 94667; 94760; 97161-GP; 99284; 99285; A9270-GY; J0456; J0696; J1650; J2405; J3475; J3490; J7040; J7050; J7620-GY

== ENCOUNTER 2023-08-02 14:36 | Inpatient (IN) | payer MEDICARE, OTHER ==
[2023-08-02 15:18] LABS: BASOPHILS ABSOLUTE AUTO 0.1 x10^3/uL (0.0-0.2); EOSINOPHILS ABSOLUTE AUTO 0.2 x10^3/uL (0.0-0.5); EOSINOPHILS PERCENT AUTO 3.1 % (0.0-4.0); HEMATOCRIT 33.1 % (33.0-47.0); HEMOGLOBIN 11.7 g/dL (12.0-16.0); IMMATURE GRAN ABSOLUTE AUTO 0.01 x10^3/uL (0.00-0.07); LYMPHOCYTES ABSOLUTE AUTO 1.4 x10^3/uL (1.0-4.8); LYMPHOCYTES PERCENT AUTO 27.6 % (25.0-50.0); MEAN CORPUSCULAR HGB CONC 35.3 g/dL (32.0-36.0); MEAN CORPUSCULAR VOLUME 87.8 fL (78.0-93.0); MONOCYTES ABSOLUTE AUTO 0.6 x10^3/uL (0.0-0.8); MONOCYTES PERCENT AUTO 11.7 % (2.0-11.0); NEUTROPHILS ABSOLUTE AUTO 2.9 x10^3/uL (1.8-7.7); NEUTROPHILS PERCENT AUTO 56.4 % (50.0-80.0); PLATELET COUNT,PLT 322 x10^3/uL (130-400); RED BLOOD CELL COUNT 3.77 x10^6/uL (4.00-5.50); WHITE BLOOD CELL COUNT,WBC 5.1 x10^3/uL (4.0-10.0)
[2023-08-02 15:42] LABS: A/G RATIO 1.15; ALANINE AMINOTRANSFERASE,ALT 13 U/L (14-59); ALBUMIN 3.8 g/dL (3.4-5.0); ALKALINE PHOSPHATASE 76 U/L (46-116); ASPARTATE AMNIOTRANSFERASE,AST 10 U/L (15-37); BILIRUBIN TOTAL 0.7 mg/dL (0.2-1.0); BLOOD UREA NITROGEN,BUN 8 mg/dL (7-18); CALCIUM 9.3 mg/dL (8.5-10.1); CARBON DIOXIDE,CO2 25 mmol/L (21-32); CHLORIDE,CL 89 mmol/L (98-107); CREATININE 0.6 mg/dL (0.55-1.02); GLUCOSE RANDOM 104 mg/dL (70-99); MAGNESIUM 1.6 mg/dL (1.8-2.4); POTASSIUM,K 4.1 mmol/L (3.5-5.1); PROTEIN TOTAL,TP 7.1 g/dL (6.4-8.2)
[2023-08-02 15:45] LABS: ANION GAP 14.1 mmol/L (5-15); C-REACTIVE PROTEIN < 0.50 mg/dL (<=0.50); ESTIMATED GFR 88 mL/min (>=60)
[2023-08-02 15:46] LABS: SODIUM,NA 124 mmol/L (136-145)
[2023-08-02] MEDS ORDERED: Sodium Chloride 0.9% 1,000 ML IV ONE (15:53)
[2023-08-02 16:35] LABS: APPEARANCE,URINE CLEAR (CLEAR); BILIRUBIN,URINE NEGATIVE (NEGATIVE); COLOR,URINE LIGHT YELLOW (YELLOW); GLUCOSE,URINE NEGATIVE (NEGATIVE); KETONES,URINE NEGATIVE (NEGATIVE); LEUKOCYTE ESTERASE,URINE NEGATIVE (NEGATIVE); NITRITE,URINE NEGATIVE (NEGATIVE); OCCULT BLOOD,URINE TRACE-INTACT (NEGATIVE); PROTEIN,URINE NEGATIVE (NEGATIVE); UROBILINOGEN,URINE 0.2 EU/dL (0.2)
[2023-08-02 16:41] LABS: BACTERIA,URINE NOT SEEN /HPF (NOT SEEN); MUCUS,URINE NOT SEEN /LPF (NOT SEEN); RBC,URINE 0-5 /HPF (NOT SEEN); SQUAMOUS EPITHELIAL CELLS,UR NOT SEEN /HPF (NOT SEEN); WBC,URINE 0-5 /HPF (NOT SEEN)
[2023-08-02] MEDS ORDERED: Magnesium Sulfate/Water 2 GM in Premix Bag 1 BAG IV ONE (18:13)
[2023-08-02] MEDS ORDERED: Acetaminophen 500 MG Tab PO PRN (18:14)
[2023-08-02] MEDS ORDERED: Sulfamethoxazole/Trimethoprim 800-160 MG Tab PO PRN (18:14)
[2023-08-02] MEDS ORDERED: Albuterol HFA 18 Gm Inhaler INH PRN (18:14)
[2023-08-02] MEDS ORDERED: Sodium Chloride 0.9% 1,000 ML IV SCH (18:30)
[2023-08-02] MEDS: Metoclopramide 10 MG/2 ML SDV IVPUSH SCH (18:49)
[2023-08-02] MEDS: amLODIPine 10 MG Tab PO SCH (18:49)
[2023-08-03] MEDS: Metoclopramide 10 MG/2 ML SDV IVPUSH SCH ×2 (00:19→06:09)
[2023-08-03] MEDS: Pantoprazole 40 MG Tab.CR PO SCH (06:10)
[2023-08-03] MEDS ORDERED: Ondansetron 4 MG Tab.DIS PO PRN (06:27)
[2023-08-03] MEDS ORDERED: Formoterol/Mometasone 200-5 MCG 13 GM Inhaler INH SCH (07:00)
[2023-08-03] MEDS ORDERED: Omeprazole 20 MG Cap.CR PO SCH (07:00)
[2023-08-03 07:10] LABS: BASOPHILS ABSOLUTE AUTO 0.1 x10^3/uL (0.0-0.2); BASOPHILS PERCENT AUTO 1.2 % (0.2-1.2); EOSINOPHILS ABSOLUTE AUTO 0.1 x10^3/uL (0.0-0.5); EOSINOPHILS PERCENT AUTO 2.6 % (0.0-4.0); HEMATOCRIT 31.5 % (33.0-47.0); HEMOGLOBIN 10.8 g/dL (12.0-16.0); IMMATURE GRAN ABSOLUTE AUTO 0.01 x10^3/uL (0.00-0.07); LYMPHOCYTES ABSOLUTE AUTO 1.3 x10^3/uL (1.0-4.8); LYMPHOCYTES PERCENT AUTO 29.9 % (25.0-50.0); MEAN CORPUSCULAR HEMOGLOBIN 30.6 pg (26.0-32.0); MEAN CORPUSCULAR HGB CONC 34.3 g/dL (32.0-36.0); MEAN CORPUSCULAR VOLUME 89.2 fL (78.0-93.0); MONOCYTES ABSOLUTE AUTO 0.5 x10^3/uL (0.0-0.8); MONOCYTES PERCENT AUTO 12.5 % (2.0-11.0); NEUTROPHILS ABSOLUTE AUTO 2.3 x10^3/uL (1.8-7.7); NEUTROPHILS PERCENT AUTO 53.6 % (50.0-80.0); PLATELET COUNT,PLT 309 x10^3/uL (130-400); RED BLOOD CELL COUNT 3.53 x10^6/uL (4.00-5.50); WHITE BLOOD CELL COUNT,WBC 4.3 x10^3/uL (4.0-10.0)
[2023-08-03 07:27] LABS: CALCIUM 8.8 mg/dL (8.5-10.1); CREATININE 0.6 mg/dL (0.55-1.02); EST CRCL DRUG DOSING (CG) 56.69 mL/min; MAGNESIUM 1.9 mg/dL (1.8-2.4); POTASSIUM,K 3.9 mmol/L (3.5-5.1)
[2023-08-03 07:29] LABS: ANION GAP 11.9 mmol/L (5-15)
[2023-08-03] MEDS: Losartan 50 MG Tab PO SCH (08:17)
[2023-08-03] MEDS: Gemfibrozil 600 MG Tab PO SCH (08:18)
[2023-08-03] MEDS: amLODIPine 10 MG Tab PO SCH (08:18)
[2023-08-03] MEDS: Carvedilol 25 MG Tab PO SCH ×2 (08:19→17:52)
[2023-08-03] MEDS ORDERED: Fluticasone Propionate Nasal Spray 9.9 ML BOTTLE NASBOTH PRN (08:36)
[2023-08-03] MEDS ORDERED: Aspirin 81 MG Tab.EC PO SCH (09:00)
[2023-08-03] MEDS ORDERED: Cholecalciferol (Vitamin D3) 25 MCG Tab PO SCH (09:00)
[2023-08-03] MEDS ORDERED: Losartan 50 MG Tab PO SCH (09:00)
[2023-08-03] MEDS: Sodium Chloride 0.9% 1,000 ML IV SCH ×2 (09:08→19:18)
[2023-08-03] MEDS: Magnesium Oxide 400 MG Tab PO SCH (09:08)
[2023-08-03] MEDS: Metoclopramide 5 MG Tab PO SCH ×3 (11:40→20:46)
[2023-08-03] MEDS ORDERED: Albuterol HFA 18 Gm Inhaler INH PRN (20:31)
[2023-08-03] MEDS ORDERED: ADVAIR INH SCH (21:00)
[2023-08-03] MEDS: ADVAIR INH SCH (21:36)
[2023-08-04] MEDS: Metoclopramide 5 MG Tab PO SCH (06:29)
[2023-08-04] MEDS: ADVAIR INH SCH (06:29)
[2023-08-04] MEDS: Pantoprazole 40 MG Tab.CR PO SCH (06:29)
[2023-08-04 07:15] LABS: BASOPHILS PERCENT AUTO 0.8 % (0.2-1.2); EOSINOPHILS ABSOLUTE AUTO 0.1 x10^3/uL (0.0-0.5); EOSINOPHILS PERCENT AUTO 3.1 % (0.0-4.0); HEMATOCRIT 28.3 % (33.0-47.0); HEMOGLOBIN 9.6 g/dL (12.0-16.0); IMMATURE GRAN ABSOLUTE AUTO 0.01 x10^3/uL (0.00-0.07); LYMPHOCYTES PERCENT AUTO 28.9 % (25.0-50.0); MEAN CORPUSCULAR HEMOGLOBIN 30.7 pg (26.0-32.0); MEAN CORPUSCULAR HGB CONC 33.9 g/dL (32.0-36.0); MEAN CORPUSCULAR VOLUME 90.4 fL (78.0-93.0); MONOCYTES ABSOLUTE AUTO 0.5 x10^3/uL (0.0-0.8); MONOCYTES PERCENT AUTO 14.8 % (2.0-11.0); NEUTROPHILS ABSOLUTE AUTO 1.9 x10^3/uL (1.8-7.7); NEUTROPHILS PERCENT AUTO 52.1 % (50.0-80.0); PLATELET COUNT,PLT 266 x10^3/uL (130-400); RED BLOOD CELL COUNT 3.13 x10^6/uL (4.00-5.50); WHITE BLOOD CELL COUNT,WBC 3.6 x10^3/uL (4.0-10.0)
[2023-08-04 07:36] LABS: CALCIUM 8.5 mg/dL (8.5-10.1); CREATININE 0.5 mg/dL (0.55-1.02); EST CRCL DRUG DOSING (CG) 68.02 mL/min; MAGNESIUM 1.8 mg/dL (1.8-2.4); POTASSIUM,K 3.5 mmol/L (3.5-5.1)
[2023-08-04 07:38] LABS: ANION GAP 13.5 mmol/L (5-15)
[2023-08-04] MEDS ORDERED: ORAJEL PO SCH (09:00)
[2023-08-04] MEDS: Losartan 50 MG Tab PO SCH (09:11)
[2023-08-04] MEDS: Gemfibrozil 600 MG Tab PO SCH (09:13)
[2023-08-04] MEDS: Magnesium Oxide 400 MG Tab PO SCH (09:14)
[2023-08-04] MEDS: Carvedilol 25 MG Tab PO SCH (09:14)
[2023-08-04] MEDS: amLODIPine 10 MG Tab PO SCH (09:14)
[2023-08-04 11:30] VITALS: BP 174/74; PULSE 72
== END 2023-08-04 10:25 | disposition home or self-care (01) | DRG 641 ==
LOC: VM.ED 14:36 → VM.MS 16:12 → UNDOADMIN 16:12
PROVIDERS: ADMIT Nurse Practitioner Family; ATTEND Family Medicine
DX: E87.1 Hypo-osmolality and hyponatremia (principal); K56.7 Ileus, unspecified; I48.91 Unspecified atrial fibrillation; I51.81 Takotsubo syndrome; I38 Endocarditis, valve unspecified; E87.6 Hypokalemia; I10 Essential (primary) hypertension; R41.0 Disorientation, unspecified; E83.42 Hypomagnesemia; D64.9 Anemia, unspecified; K13.70 Unspecified lesions of oral mucosa; I48.0 Paroxysmal atrial fibrillation; J43.1 Panlobular emphysema; E78.00 Pure hypercholesterolemia, unspecified; I25.10 Atherosclerotic heart disease of native coronary artery without angina pectoris; J44.9 Chronic obstructive pulmonary disease, unspecified; K21.9 Gastro-esophageal reflux disease without esophagitis; K59.00 Constipation, unspecified; Z96.641 Presence of right artificial hip joint; E55.9 Vitamin D deficiency, unspecified; Z96.661 Presence of right artificial ankle joint; Z96.653 Presence of artificial knee joint, bilateral; Z90.49 Acquired absence of other specified parts of digestive tract; Z98.51 Tubal ligation status; Z79.01 Long term (current) use of anticoagulants; Z90.710 Acquired absence of both cervix and uterus; Z98.890 Other specified postprocedural states; Z88.0 Allergy status to penicillin; Z88.5 Allergy status to narcotic agent; Z88.8 Allergy status to other drugs, medicaments and biological substances; Z90.89 Acquired absence of other organs; Z87.891 Personal history of nicotine dependence; Z79.82 Long term (current) use of aspirin; Z79.899 Other long term (current) drug therapy
CPT/HCPCS: 36415; 71046; 74019; 80048; 80053; 81001; 83735; 84484; 85025; 86140; 93005; 93010; 97161-GP; 99223; 99284; 99285-25; A9270-GY; J2765; J3475; J7030

== ENCOUNTER 2023-08-07 10:09 | Emergency (ER) | payer MEDICARE, OTHER ==
[2023-08-07 10:25] VITALS: BP 200/73; PULSE 60
== END 2023-08-07 10:50 | disposition home or self-care (01) ==
LOC: VM.ED 10:09
DX: I10 Essential (primary) hypertension (principal); E78.00 Pure hypercholesterolemia, unspecified; I48.91 Unspecified atrial fibrillation; J44.9 Chronic obstructive pulmonary disease, unspecified; Z90.49 Acquired absence of other specified parts of digestive tract; Z90.710 Acquired absence of both cervix and uterus; Z79.82 Long term (current) use of aspirin; Z79.899 Other long term (current) drug therapy; Z88.0 Allergy status to penicillin; Z88.6 Allergy status to analgesic agent; Z88.5 Allergy status to narcotic agent; Z91.018 Allergy to other foods; Z88.8 Allergy status to other drugs, medicaments and biological substances
CPT/HCPCS: 99283; 99284